=== PATIENT | male | born 1950 | race Caucasian/White ===

== ENCOUNTER 2023-03-18 23:14 | Emergency (ER) | payer MEDICARE, SELFPAY ==
[2023-03-18 23:30] VITALS: BP 184/93; PULSE 60; RESP 18; TEMP 36.8; O2SAT 97; BMI 28.1
--- NOTE | 2023-03-18 23:33 | ED.GENADULT ---
HPI - General Adult General Chief complaint: Abdominal Pain Stated complaint: abdominal pain lightheaded Time Seen by Provider: 03/18/23 23:33 History of Present Illness HPI narrative: RLQ pain started today. had a scan with PCP for abd but no results. states hx of appendectomy. normal BM today . does have nausea with it. hx colon ca, prostate ca, lymphoma 72-year-old man presenting to the emergency department concern of abdominal pain and lightheadedness. Attempting clarify whether this is dizziness or lightheadedness he says maybe a combination of both. Does not really seem to be present though at rest. Maintains that this is a new symptom as of today. No headache. No visual disturbance. Does endorse a history of about a year and a half ago combination a TIA and other CVA as described which briefly affected his right eye and speech but has fully resolved. He is only taking aspirin. Underlying history of colon cancer see initially denying any abdominal surgeries but later evident that has had partial colectomy for this. He also has prostate cancer for which he did have radiation as well as resection for lymphoma indicating his left neck right axilla and right side. He has now had 6-8 weeks of persistent cramping lower abdominal pain. Two weeks ago was seen by Natasha cornejo who ordered an abdominal CT scan which he says was unremarkable. Cancer doc in effort to clarify this thought that maybe should order a PET scan which was apparently done today with results unavailable. Mr. Covarrubias also has a history of cardiovascular disease noting a history of a stent many years ago. Never had a heart attack is says. He is status post appendectomy. Denies constipation or diarrhea. No fever. He is not having any chest pain or shortness of breath. Denies dysuria or frequency urgency. Denies trouble with urinary retention. I asked him what he would like from this visit a, ?I would just like you to figure out what is going on?. This is also after I ask what he thinks might be going on sounds the some question whether not he might have kidney stones. It does not sound as though this was noted on prior imaging. Has not noted any hematuria. Related Data Home Medications Medication Instructions Recorded Confirmed aspirin 81 mg capsule 81 mg PO DAILY 03/18/23 03/18/23 lisinopril .ROUTE 03/18/23 metoprolol tartrate .ROUTE 03/18/23 tamsulosin 0.4 mg capsule 0.4 mg PO DAILY 03/18/23 03/18/23 Previous Rx's Medication Instructions Recorded tramadol 50 mg tablet 50 - 100 mg (1 - 2 x 50 mg) PO BID 03/19/23 PRN pain #10 tabs tramadol 50 mg tablet 50 - 100 mg (1 - 2 x 50 mg) PO BID 03/19/23 PRN pain #10 tabs Allergies Allergy/AdvReac Type Severity Reaction Status Date / Time Penicillins AdvReac Verified 03/18/23 23:28 Review of Systems Status of ROS: Reports: 6 or more systems reviewed and unremarkable except as noted in History and below [facility] Medical History (Updated 03/19/23 @ 01:54 by Eduard Chawla MD) Colon cancer ?C18.9 - Malignant neoplasm of colon, unspecified (ICD-10) Prostate cancer ?C61 - Malignant neoplasm of prostate (ICD-10) Social History Smoking Status: Never smoker Do you use any of these nicotine containing products: None How often do you have a drink containing alcohol: never AUDIT-C Alcohol total score: 0 Non-prescribed substance use: denies use Exam Narrative: Exam Narrative: Pleasant. NAD. Frequently closing his eyes apparently against the light. Easily conversant. Breathing easily. Head is atraumatic. Cranial nerves 2-12 are intact. Pupils 2-3 mm equal and briskly reactive. There is no nystagmus. No facial swelling erythema or tenderness. TMs bilaterally did not appear to be inflamed or full; exam a little challenge by extensive cerumen in the canals. Reports this sense of (my interpretation) vague dizziness or lightheadedness in transitions. Moving all extremities without difficulty. Lower extremities are without edema. Is well-perfused. Heart in regular rhythm. Slower rate. Distant. Abdomen is soft normoactive bowel sounds. Relatively recent postoperative scars at the left abdomen consistent with trocar placement. Old well-healed scar at the right low inguinal area. Mildly tender with mild resistance to exam not to the degree of discomfort I would associate with true guarding, across the low abdomen. Generally full without discrete mass. Suprapubic area shaved - no recent procedures noted here. Const: Vital Signs, click to edit/add: Vital Signs - 24 hr 03/18/23 23:30 03/19/23 01:46 Temperature 98.2 F Pulse Rate [Pulse Oximeter] 60 Pulse Rate [orthos tatic lying] 62 Pulse Rate [orthos tatic sitting] 64 Pulse Rate [orthos tatic standing] 63 Respiratory Rate 18 Blood Pressure [Ri ght Upper Arm] 184/93 H Blood Pressure [or thostatic lying] 182/94 H Blood Pressure [or thostatic sitting] 179/104 H Blood Pressure [or thostatic standing ] 200/107 H Pulse Oximetry 97 Oxygen Delivery Me thod Room Air Documenting provider has reviewed patient's vital signs: yes Course Vital Signs Vital signs: Initial Vital Signs Temperature 98.2 F 03/18/23 23:30 Temperature Source Temporal Artery Scan 03/18/23 23:30 Pulse Rate 60 03/18/23 23:30 Respiratory Rate 18 03/18/23 23:30 Blood Pressure 184/93 H 03/18/23 23:30 Blood Pressure Mean 123 H 03/18/23 23:30 Blood Pressure Position Sitting 03/18/23 23:30 Pulse Oximetry 97 03/18/23 23:30 Oxygen Delivery Method Room Air 03/18/23 23:30 Vital Signs Temperature 98.2 F 03/18/23 23:30 Pulse Rate 60 03/18/23 23:30 Respiratory Rate 18 03/18/23 23:30 Blood Pressure 184/93 H 03/18/23 23:30 Pulse Oximetry 97 03/18/23 23:30 Oxygen Delivery Method Room Air 03/18/23 23:30 Temperature 98.2 F 03/18/23 23:30 Pulse Rate 62 03/19/23 01:46 Respiratory Rate 18 03/18/23 23:30 Blood Pressure 182/94 H 03/19/23 01:46 Pulse Oximetry 97 03/18/23 23:30 Oxygen Delivery Method Room Air 03/18/23 23:30 Medications Administered Medications: Discontinued Medications Generic Name Dose Route Start Last Admin Trade Name Freq PRN Reason Stop Dose Admin Sodium Chloride 1,000 mls @ 1,000 mls/hr 03/18/23 23:57 03/19/23 01:24 0.9 % Sodium Chloride 1000 Ml IV 03/19/23 00:56 Infused .Q1H ONE Infusion Tramadol HCl 100 mg 03/19/23 01:17 03/19/23 01:23 Tramadol Hcl 50 Mg Tablet PO 03/19/23 01:18 100 mg ONCE ONE Administration Medical Decision Making MDM Narrative Medical decision making narrative: This is difficult with persistent symptoms already evaluated, seems to be continuation of what has been present prior. New symptom is this sense of dizziness or lightheadedness without physical findings otherwise. Would do orthostatics. He does take a beta-tristan. Tamsulosin as well. Either medication I suppose could be contributing to the sense of lightheadedness although per on arrival is clearly not hypotensive. Lightheadedness could be related to lower abdominal pain. This abdominal pain has been imaged without findings though discomfort seems to be escalating. 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 Reviewing prior imaging from 01/17/2023, it looks like this mass was in the central mesentery. Look for objective findings in orthostatics. Check labs. Evaluate for cardiac event. Monitor for dysrhythmia/arrhythmia. I would do bladder scan as well with history of prostatic issues. Urinalysis. Ordered for L of normal saline IV. Orthostatics I see completed following L of fluids, were reported by nursing as asymptomatic. Systolic blood pressure raised by about 16 points. Unchanged pulse. On reassessment is reported feeling improved. He does say that he has some version of abdominal or back binder that he uses at home that has been helpful. Wondered if we had anything like that here. I had requested abdominal binder. Reexamining he is somewhat tender in the right greater than left inguinal areas. This is not consistent with the hip flexors. Somewhat related to testicular cord/epididymal tissues, do not testing from pelvic wall. No pain or swelling apparent in testicles themselves. Urinalysis was normal. Bladder scanned for 86 mL having voided couple hours prior. 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 Transitioning without difficulty. Labs are reassuring. Further questioning -- apparently has received oxycodone prescription from primary care provider. Reports that he was out as of yesterday. Believes he received 20 tabs. Elevated blood pressure generally but otherwise does not appear to have any emergent matter here. Says that he has taken his blood pressure medication regularly. Agrees that he feels better, improved, well to depart the emergency department. No imaging was done given that has had regular and repeat imaging for same complaints. Agrees to follow-up closely with primary care. See patient discharge plan Medical Records Medical records reviewed: Yes I reviewed the patient's medical records Lab Data Lab results reviewed: Yes I reviewed the patient's lab results Labs: Lab Results 03/19/23 03/19/23 03/19/23 Range/Units 00:10 00:15 00:40 WBC 7.81 (4.50-11.00) K/uL RBC 4.37 (4.30-5.90) m/uL Hgb 13.8 (13.5-17.5) gm/dL Hct 38.6 (37.0-53.0) % MCV 88 (80-100) fL MCH 32 (26-34) pg MCHC 36 (32-36) gm/dL RDW Coeff of Andrez 12.1 (11.5-15.5) % Plt Count 163 (140-440) K/uL Neut % (Auto) 79.1 H (42.0-72.0) % Lymph % (Auto) 10.6 L (20-44) % [place] % (Auto) 6.8 (0.0-11.0) % Eos % (Auto) 2.3 (0.0-7.0) % Baso % (Auto) 0.3 (0.0-3.0) % Neut # (Auto) 6.20 (1.7-7.0) K/uL Lymph # (Auto) 0.80 L (0.90-2.90) K/uL [place] # (Auto) 0.50 (0.00-0.90) K/UL Eos # (Auto) 0.18 (0.00-0.50) K/uL Baso # (Auto) 0.02 (0.00-0.30) K/uL Abs Immat Gran (auto) 0.07 (0.00-0.30) K/uL Imm/Tot Granulo (auto) 0.9 % Sodium 137 (135-149) mmol/L Potassium 3.6 (3.6-5.1) mmol/L Chloride 105 (96-114) mmol/L Carbon Dioxide 28 (20-32) mmol/L Anion Gap 4 L (7-15) mEq/L BUN 17 (7-30) mg/dL Creatinine 1.1 (0.5-1.5) mg/dL Estimated Creat Clear 61.59 Estimated GFR 72 ml/min Glucose 119 H (60-115) mg/dL Lactate 0.9 (0.5-1.9) mmol/L Calcium 9.1 (8.4-10.6) mg/dL Magnesium 1.9 (1.5-2.6) mg/dL Troponin I 0.01 (0.01-0.04) ng/mL C-Reactive Protein 0.5 (0.5-1.0) mg/dL NT-Pro-B Natriuret Pep 368 pg/mL Urine Color Yellow (Yellow) Urine Appearance Clear (Clear) Urine pH 7.5 (5.0-8.5) Ur Specific [place] 1.020 (1.000-1.030) Urine Protein Negative (Negative) Urine Glucose (UA) Negative (Negative) Urine Ketones Negative (Negative) Urine Blood Negative (Negative) Urine Nitrite Negative (Negative) Urine Bilirubin Negative (Negative) Urine Urobilinogen 0.2 (0.2-1.0) Ur Leukocyte Esterase Negative (Negative) Urine RBC 0-2 (0-2) Urine WBC 0-2 (0-5) Ur Squamous Epith Cells Few (None-Few) Urine Bacteria None (None) Ethyl Alcohol < 0.01 L (0.01-0.03) % SARS-CoV-2 (PCR) Negative SARS-CoV-2 (Negative) Influenza Type A (PCR) Negative PCR FLU A (Negative) Influenza Type B (PCR) Negative PCR FLU B (Negative) RSV (PCR) Negative PCR RSV (Negative) POC Troponin I 0.00 L (0.01-0.04) ng/ml ECG Data Attestation: I personally reviewed and interpreted this ECG as follows: (Sinus bradycardia. Right bundle. rate of 50. No prior for comparison. Otherwise without ischemic changes.) Discharge Plan Discharge Clinical Impression: Low back pain, Lower abdominal pain Patient Disposition: Home w/ Parent or Adult Condition: Improved Additional Instructions: Yes. I think I would follow-up with your primary care provider; call yet later today if possible. Your labs are overall reassuring. Your blood pressure is little bit elevated. I would check this after a period of rest every other day over this coming week. Return for marked increase in lightheadedness, severe abdominal pain, chest pain or shortness of breath. Prescriptions: New tramadol 50 mg tablet 50 - 100 mg PO BID PRN (Reason: pain) Qty: 10 0RF tramadol 50 mg tablet 50 - 100 mg PO BID PRN (Reason: pain) Qty: 10 0RF No Action metoprolol tartrate .ROUTE lisinopril .ROUTE aspirin 81 mg capsule 81 mg PO DAILY tamsulosin 0.4 mg capsule 0.4 mg PO DAILY Follow Up/Referrals: Vamshi Hewitt MD [Primary Care Provider] - Stand Alone Forms: [facility] Info Instructions
--- OUTSIDE RECORDS SUMMARY | 2023-03-19 00:04 | XMS_ITS | Referral Summary ---
Author Name Unknown Organization [place] Address [address] [place] [address]. [place] [address] Care Team Providers Care Serologist Name Role Phone Vamshi Hewitt MD Primary Care Provider + [phone] Silvia Montiel MD Unavailable [phone] Allergies Active Allergy Reactions Criticality Noted Date Comments Penicillins 07/29/2012 Medications Medication Sig Dispensed Refills Start Date End Date Status metoprolol succinate ER (TOPROL-XL) 100 MG 24 hr tablet Take 100 mg by mouth daily 0 Active lisinopril-hydroc hlorothiazide (ZESTORETIC) 20-12.5 MG tablet Take 1 tablet by mouth daily 0 Active acyclovir (ZOVIRAX) 400 MG tablet Take 2,000 mg by mouth as needed (onset of symptoms and repeat in 12 hours. 5 x 400 mg = 2000 mg) 0 Active aspirin 81 MG EC tablet Take 81 mg by mouth daily 0 Active Polyvinyl Alcohol-Povidone (REFRESH OP) Place 1 drop into both eyes as needed (for dry eyes) 0 Active oxyCODONE (ROXICODONE) 5 MG tabletIndications :Polyp of ascending colon, unspecified type Take 1-2 tablets (5-10 mg) by mouth every 6 hours as needed for moderate to severe pain 12 tablet 0 07/22/2021 Active oxybutynin ER (DITROPAN XL) 5 MG 24 hr tabletIndications :Overactive bladder Take 1 tablet (5 mg) by mouth daily 90 tablet 1 02/20/2022 Active indomethacin (INDOCIN) 50 MG capsule Take 50 mg by mouth 2 times daily as needed (gout) 0 07/22/2021 Discontinued Active Problems Problem Noted Date Diagnosed Date Pulmonary nodules 07/20/2021 Gastrointestinal hemorrhage, unspecified gastrointestinal hemorrhage type 07/20/2021 Anemia, unspecified type 07/20/2021 Colon polyp 07/18/2021 Prostate cancer 05/11/2021 Diverticulitis of colon 01/28/2020 Acute ischemic stroke 01/02/2020 Cerebrovascular accident (CVA), unspecified mech anism 01/02/2020 Immunizations Name Administration Dates Next Due Influenza (H1N1) 12/18/2008 Influenza (High Dose) 3 valent vaccine 9 Influenza (IIV3) PF 12/24/2013,02/22/2011 Influenza (intradermal) 11/01/2011 Influenza Vaccine 65+ (FLUAD) 11/24/2019 Influenza, seasonal, injectable, PF 11/12/2008 Pneumo Conj 13-V (2010&after) 12/24/2019 TDAP (Adacel,Boostrix) 11/13/2011 Zoster vaccine, live 12/24/2013,11/01/2011 Social History Tobacco Use Types Packs/Day Years Used Date Smoking Tobacco: Never Passive Smoke Exposure: Never Smokeless Tobacco: Never Tobacco Cessation:Counseling Given: Yes Alcohol Use Standard Drinks/Week Comments No 0 (1 standard drink = 0.6 oz pur e alcohol) Overall Financial Resource Strain (CARDIA) Answe r Date Recorded How hard is it for you to pa y for the very basics like food, housing, medical care, and heating? Not very hard 02/05/2020 PHQ-2 Answer Date Recorded PHQ-2 Score 0 03/22/2021 Hunger Vital Sign Answer Date Recorded Within the past 12 months, y ou worried that your food would run out before you got the money to buy more. Never true 02/05/20 20 Within the past 12 months, t he food you bought just didn't last and you didn't have money to get more. Never true 02/05/2020 PRAPARE - Transportation Answer Date Re corded In the past 12 months, has l ack of transportation kept you from medical appointments or from getting medications? No 01/18 In the past 12 months, has l ack of transportation kept you from meetings, work, or from getting things needed for daily living? No 02/05/2020 Adolescent Education Answer Date Record ed Getting School Help Needed Not on file 12/02 Sex and Gender Information Value Date Recorded Sex Assigned at Not on file Gender Identity Not on file Sexual Orientation Not on file Last Filed Vital Signs Vital Sign Reading Time Taken Comments Blood Pressure 110/78 10/26/2022 10:16 AM CDT Pulse 59 10/26/2022 10:16 AM CDT Temperature 36.6 ??C (97.8 ??F) 07/22/2021 7:35 AM CD T Respiratory Rate 15 10/26/2022 10:16 AM CDT Oxygen Saturation 98% 10/26/2022 10:16 AM CDT Inhaled Oxygen Concentration - - Weight 81.6 kg (180 lb) 10/26/2022 10:16 AM CDT Height 175.3 cm (5' 9) 10/26/2022 10:16 AM CDT Body Mass Index 26.58 10/26/2022 10:16 AM CDT Plan of Treatment Not on file Advance Directives For more information, please contact: [phone] Latest Code Status on File Code Status Date Activated Date Inactivated Comments Full Code 07/22/2021 2:44 PM Question Answer Comments Code status determined by: Discussion wi patient/ legal decision maker Code Status History Code Status Date Activated Date Inactivated Comments Full Code 07/20/2021 11:06 PM 07/22/2021 2:44 PM All ba sic and advanced life-sustaining interventions are performed as appropriate Question Answer Comments Code status determined by: Discussion with patient/ legal decision maker Full Code 07/18/2021 7:29 PM 07/19/2021 7:45 PM All ba sic and advanced life-sustaining interventions are performed as appropriate Question Answer Comments Code status determined by: Discussion with patient/ legal decision maker Full Code 01/28/2020 1:12 PM 07/18/2021 9:57 AM Question Answer Comments Code status determined by: Discussion with patient/ legal decision maker Full Code 01/28/2020 3:53 AM 01/28/2020 1:12 PM All basic and advanced life-sustaining interventions are performed as appropriate Question Answer Comments Code status determined by: Discussion with patient/ legal decision maker Care Teams Serologist Relationship Specialty [place] [address] [place] [phone] PCP - General Family Practice 07/29/12 Silvia Montiel MD [facility] [address] [facility] [address] [place], [place] [id number] Assigned Surgical Provider 11/03/22
--- OUTSIDE RECORDS SUMMARY | 2023-03-19 00:04 | XMS_ITS | Encounter Summary ---
Author Name Unknown Organization [place] Address [facility] [facility] [place] [address] Care Team Providers Care Music Executive Name Role Phone Vamshi Hewitt MD Primary Care Provider + [phone] Matteo Del Angel MD Unavailable [phone] Encounter Details Date Type Department Care Team (Latest Contact Info) Description 10/26/2022 Travel Social History Tobacco Use Types Packs/Day Years Used Date Smoking Tobacco: Never Passive Smoke Exposure: Never Smokeless Tobacco: Never Alcohol Use Standard Drinks/Week Comments No 0 [...] things needed for daily living? No 02/05/2020 Sex and Gender Information Value Date Recorded Sex Assigned at Not on file Gender Identity Not on file Sexual Orientation Not on file COVID-19 Exposure Response Date Recorded In the last 10 days, have yo u been in contact with someone who was confirmed or suspected to have Coronavirus/COVID-19? Unable to assess 10/26/2022 11:18 AM CDT documented as of this encounter Plan of Treatment Not on file documented as of this encounter Visit Diagnoses Not on filedocumented in this encounter Care Teams Music Executive Relationship Specialty [place] [address] [place] [phone] PCP - General Family Practice 07/29/12 Matteo Del Angel MD [address] [place] [id number] Assigned Surgical Provider 02/26/21 documented as of this encounter
--- OUTSIDE RECORDS SUMMARY | 2023-03-19 00:04 | XMS_ITS | Clinical Summary ---
Author Name Unknown Organization [place] Address [address] [place] [address]. [place] [address] Care Team Providers Care Talent Acquisition Assistant Name Role Phone Vamshi Hewitt MD Primary Care Provider + [phone] Silvia Montiel MD Unavailable Allergies Active Allergy Reactions Criticality Noted Date [...] TDAP (Adacel,Boostrix) 11/13/2011 Zoster vaccine, live 12/24/2013,11/01/2011 Family History Medical History Relation Comments Colon Cancer No family hx of Social History Tobacco Use Types Packs/Day Years [...] 10/26/2022 10:16 AM CDT Plan of Treatment Health Maintenance Due Date Last Done Comments ADVANCE CARE PLANNING 1950 ANNUAL REVIEW OF HM ORDERS 1950 CT COLONOGRAPHY 1950 FIT 1950 FLEX SIG 1950 sDNA (Cologuard) 1950 HEPATITIS C SCREENING 11/16/1969 RSV VACCINE ( & 60+) (1 - 1-dose 60+ series) 2011 ZOSTER IMMUNIZATION (1 of 2) 02/18/2014 12/24/2013, 11/01/2011 MEDICARE ANNUAL WELLNESS VISIT 11/16/2016 FALL RISK ASSESSMENT 02/04/2021 02/05/2020 DTAP/TDAP/TD IMMUNIZATION (2 - Td or Tdap) 11/12/2021 11/13/2011 COLONOSCOPY 07/21/2022 07/21/2021, 07/21/2021 COLORECTAL CANCER SCREENING 07/21/2022 COVID-19 Vaccine ( - season) 2022 12/01/2021, 03/30/2020, 03/02/2020 INFLUENZA VACCINE (#1) 2022 , 11/24/2019, 02/04/2019, Additional history exists PHQ-2 (once per calendar year) 2023 03/22/2021, 03/09/2021 LIPID 01/01/2025 01/02/2020, 11/11/2004 AORTIC ANEURYSM SCREENING (SYSTEM ASSIGNED) Completed 07/20/2021, 03/20/2021, 01/28/2020 Pneumococcal Vaccine: 65+ Years Completed 12/01/2021, 12/24/2019 HPV IMMUNIZATION Aged Out No longer e ligible based on patient's age to complete this topic IPV IMMUNIZATION Aged Out No longer e ligible based on patient's age to complete this topic MENINGITIS IMMUNIZATION Aged Out No l onger eligible based on patient's age to complete this topic RSV MONOCLONAL ANTIBODY Aged Out No l onger eligible based on patient's age to complete this topic Advance Directives For more information, please contact: [phone] Latest Code Status on File Code Status [...] with patient/ legal decision maker Care Teams Talent Acquisition Assistant Relationship Specialty Start [place] [address] [place] [phone] PCP - General Family Practice 07/29/12 Silvia Montiel MD [facility] [address] [facility] [address] [place] [address] Assigned Surgical Provider 11/03/22
--- OUTSIDE RECORDS SUMMARY | 2023-03-19 00:04 | XMS_ITS | Clinical Summary ---
Author Name Unknown Organization [facility] Address [place], [place] [address] Care Team Providers Care Pet Care Associate Name Role Phone Vamshi Hewitt MD Primary Care Provider Allergies Active Allergy Reactions Criticality Noted Date Comments Penicillins *Unknown 05/28/2012 Medications Medication Sig Dispensed Refills Start Date End Date Status sildenafil citrate (VIAGRA) 100 mg tabletIndications:E D (erectile dysfunction) of non-organic origin Take 1 pill 1 hour before intercourse 90 Tablet 3 07/28/2020 Active aspirin (ECOTRIN) 81 mg enteric coated tablet Take 1 Tablet (81 mg) by mouth once daily with a meal. 0 05/08/2021 Active lisinopril-hydrochl orothiazide 20-12.5 mg tablet (PRINZIDE)Indicatio ns:Essential hypertension Take 1 Tablet by mouth once daily. 90 Tablet 3 02/05/2022 Active indomethacin (INDOCIN) 50 mg capsuleIndications: Gout, unspecified cause, unspecified chronicity, unspecified site Take 1 tablet by mouth 3 times daily with food as needed 270 Capsule 0 06/04/2022 Active acyclovir (ZOVIRAX) 400 mg tabletIndications:H istory of cold sores Take 5 tablets at the onset of symptoms and repeat it in 12 hours 50 Tablet 3 11/08/2022 Active tamsulosin (FLOMAX) 0.4 mg capsuleIndications: History of cold sores Take 2 Capsules (0.8 mg) by mouth once daily after a meal. 180 Capsule 3 11/08/2022 Active metoprolol succinate (TOPROL XL) 100 mg Sustained-Release tabletIndications:H TN (hypertension) Take 1 Tablet (100 mg) by mouth once daily. 90 Tablet 3 12/10/2022 Active oxyCODONE (ROXICODONE) 5 mg immediate release tabletIndications:N yifan pain, chronic,Chronic nonintractable headache, unspecified headache type Take 1 Tablet (5 mg) by mouth every 4 hours if needed for Pain. 42 Tablet 0 03/07/2023 Active allopurinoL (ZYLOPRIM) 300 mg tabletIndications:G out involving toe of left foot, unspecified cause, unspecified chronicity Take 1 Tablet (300 mg) by mouth once daily. 90 Tablet 3 08/23/2022 03/07/19 24 Discontinu ed(*Med complete/R egimen complete/L evel of care change) oxyCODONE (ROXICODONE) 5 mg immediate release tabletIndications:N yifan pain, chronic,Chronic nonintractable headache, unspecified headache type Take 1 Tablet (5 mg) by mouth every 4 hours if needed for Pain. 42 Tablet 0 01/16/2023 03/07/19 24 Discontinu ed(Reorder (E-cancel not sent)) Active Problems Problem Noted Date Diagnosed Date Left upper quadrant abdominal pain 03/08/2023 Follicular lymphoma grade II , extranodal and solid organ sites 11/09/2022 Thyroid nodule 11/09/2022 Unspecified sequelae of cerebral infarction 10/20 Multinodular thyroid 08/14/2021 Overview: Ultrasound: 07/2021 IMPRESSION: 1. Multinodular goiter with several bilateral TI-RADS 2 nodules. No FNA recommended at this time. Anemia 07/20/2021 Gastrointestinal hemorrhage 07/20/2021 Pulmonary nodules 07/20/2021 Prostate cancer 07/14/2021 Overview: Diagnosis 02/2021 Burt 7 radiation Primary colon cancer 07/14/2021 Overview: Diagnosis 06/2021 On screening colonoscopy Right hemicolectomy 06/2021 RBBB 07/14/2021 Obstructive uropathy 07/14/2021 Overview: Likely prostate - up 4-5 a night History of cold sores 2020 Essential hypertension 07/26/2020 Hyperlipidemia, unspecified 07/26/2020 Diverticulitis of colon 01/28/2020 Mass of left parotid gland Encounters Date Type Department Care Team Description 03/07/2023 2:20 PM PORTABLE FEED MILL OPERATOR Office Visit [facility] [address] [place] [address] Vamshi Hewitt MD Medication Management 03/07/2023 Travel 02/21/2023 3:30 PM PORTABLE FEED MILL OPERATOR Ancillary Procedure [facility] [address] [place] [address] 02/21/2023 3:20 PM PORTABLE FEED MILL OPERATOR Orders Only [facility] [id number] [place] [phone] Lab, Appv Lab 02/21/2023 Travel 02/20/2023 Telephone [facility] [address] [place] [address] Vamshi Hewitt MD Lab (Please schedule patient for a lab only appointment for I-STAT Creatinine [address] scan. This appointment is OK to double book on the [facility] Schedule ONLY. Call patient to notify them.) 02/20/2023 Orders Only [facility] [address] [place] [address] Vamshi Hewitt MD <No scans attached> 02/20/2023 Telephone [facility] [address] [place] [address] Vamshi Hewitt MD 01/17/2023 5:30 PM PORTABLE FEED MILL OPERATOR Ancillary Procedure [facility] [address] [place] [address] 01/17/2023 4:50 PM PORTABLE FEED MILL OPERATOR Orders Only [facility] [address] [place] [address] Lab, Appv Lab 01/17/2023 Telephone [facility] [address] [place] [phone] Vamshi Hewitt MD Lab (Please schedule patient for a lab only appointment for I-STAT Creatinine [address] scan. This appointment is OK to double book on the [facility] Schedule ONLY. Call patient to notify them.) 01/17/2023 Orders Only [facility] [id number] [place] [phone] Vamshi Hewitt MD <No scans attached> 01/16/2023 10:10 AM PORTABLE FEED MILL OPERATOR Office Visit [facility] [id number] [place] [phone] Vamshi Hewitt MD Medication Management; Consult (Dull stomach pain in all 4 quads , pain becomes worse at night, 2-3 weeks, denies any diarrhea or emesis.); Immunization/Inject ion 01/16/2023 Travel from Last 3 Months Immunizations Name Administration Dates Next Due AMB INFLUENZA IIV3 (AGE 65+ YRS) PF (Flu Clinic Only) 12/19/2022 COVID-19 Vaccine Spikevax (M oderna 50mcg/0.5mL) 12YO+ [id number] Formula PF 01/16/2023 COVID-19 vaccine (Moderna 100mcg/0.5mL) PF, MDV 03/30/2020,03/02/2020 COVID-19 vaccine (Pfizer-Bio NTech 30mcg/0.3mL) 12YO+ BIVALENT PF, MDV 12/01/2021 Influenza A (H1N1), Inactivated 12/18/2008 Influenza Intradermal PF 18-64 yrs 11/01/2011 Influenza, High-dose Inactivated 02/04/2019 Influenza, IIV3 (Age 6-35 mos) 11/12/2008 Influenza, IIV3 (Age >=3 years) 12/24/2013,02/22 Influenza, Inactivated AIIV4 (Age 65+ Years) Preserv Free 12/01/2021,11/24/2019 Pneumococcal Poly,23-Valent (Pneumovax) 12/02/19 22 Pneumococcal conj 13-Valent (Prevnar 13) 020 Tdap 11/13/2011 Zoster (Zostavax-ZVL, live) 12/24/2013, 2 Family History Medical History Relation Name Comments Coronary artery disease Father myoc ardial infarction, quadruple bypass Cancer-breast Mother Relation Name Status Comments Father Mother Social History Tobacco Use Types Packs/Day Years Used Date Smoking Tobacco: Never Smokeless Tobacco: Never Tobacco Cessation:Counseling Given: Not Answered Alcohol Use Standard Drinks/Week Comments Not Currently 0 (1 standard drink = 0.6 oz pur e alcohol) PHQ-2 Answer Date Recorded PHQ-2 TOTAL SCORE 0 11/08/2022 Social Connections Answer Date Recorded Frequency of Communication with Friends and Fami ly 0 09/25/2022 Financial Resource Strain Answer Date R ecorded Difficulty of Paying Living Expenses 3 09/25/2022 Difficulty of Paying Living Expenses Not on file 09/25/2022 Food Insecurity Answer Date Recorded Worried About Running Out of Food in the Last Ye ar 1 09/25/2022 Transportation Needs Answer Date Record ed Lack of Transportation (Medical) 1 09/25/2022 Housing Stability Answer Date Recorded Unable to Pay for Housing in the Last Year 1 09/25/2022 Sex and Gender Information Value Date Recorded Sex Assigned at Not on file Gender Identity Not on file Sexual Orientation Not on file Obstetrics History Last Filed Vital Signs Vital Sign Reading Time Taken Comments Blood Pressure 128/78 03/07/2023 2:22 PM PORTABLE FEED MILL OPERATOR Pulse 72 03/07/2023 2:22 PM PORTABLE FEED MILL OPERATOR Temperature 36.6 ??C (97.9 ??F) 06/18/2022 1:05 PM CD T Respiratory Rate 20 06/18/2022 1:05 PM CDT Oxygen Saturation 97% 06/18/2022 1:05 PM CDT Inhaled Oxygen Concentration - - Weight 86.6 kg (191 lb) 03/07/2023 2:22 PM PORTABLE FEED MILL OPERATOR Height 174.6 cm (5' 8.75) 01/16/2023 10:[address] Body Mass Index 28.41 01/16/2023 10:53 AM PORTABLE FEED MILL OPERATOR Plan of Treatment Upcoming Encounters Date Type Department Care Team (Late st Contact Info) Description 04/08/2023 2:40 PM PORTABLE FEED MILL OPERATOR Office Visit [facility] [address] [place] [phone] [place] [address] [place] [address] Health Maintenance Due Date Last Done Comments Hepatitis C screening for ag e 18-79 11/16/1968 Zoster (shingles) series for age 50+ (1 of 2) 02/18/2014 12/24/2013, 11/01/2011 Tetanus booster 11/12/2021 11/13/2011 COVID-19 vaccine series ( season) 2023 01/16/2023, 12/01/2021, 03/30/2020, Additional history exists Medicare Wellness for age 65+ 11/08/2023, 12/01/2021 (Verified in Care Everywhere or Patient Record) Depression screening for age 12+ 11/09/2023 11/08/2022, 12/01/2021, 10/02/2021, Additional history exists BMI (ht and wt on same day) for age 18+ 01/17/2024 01/16/2023, 12/10/2022, 11/08/2022, Additional history exists Lipids for age 45-75 07/14/2026 07/14/2021 Colonoscopy through age 75 07/19/203107/18 (Verified in Care Everywhere or Patient Record), 07/18/2021 (Completed outside of [facility]) Tdap Completed 11/13/2011 Pneumococcal series for age 65+ Completed , 12/24/2019 Influenza for age 65+ Completed 12/19/2022 , 12/01/2021, 11/24/2019, Additional history exists Procedures Procedure Name Priority Date/Time Associated Diagnosis Comments CT CHEST ABDOMEN PELVIS W ELIA 02/21/2023 4:00 PM PORTABLE FEED MILL OPERATOR Follicular lymphoma (HC) CREATININE,ISTAT STAT 02/21/2023 3:30 PM PORTABLE FEED MILL OPERATOR Observation for suspected condition CT ABDOMEN PELVIS WO ELIA 01/17/2023 5:46 PM PORTABLE FEED MILL OPERATOR Abdominal pain, generalized CREATININE,ISTAT STAT 01/17/2023 5:09 PM PORTABLE FEED MILL OPERATOR Observation for suspected condition from Last 3 Months Results * CT CHEST ABDOMEN PELVIS W (02/21/2023 4:00 PM PORTABLE FEED MILL OPERATOR) Anatomical Region Laterality Modality Abdomen, Pelvis, AORTA, LIVER, SPLEEN, CHEST Computed Tomography 02/21/2023 4:00 PM PORTABLE FEED MILL OPERATOR Impressions 02/21/2023 4:27 PM PORTABLE FEED MILL OPERATOR 1. ??Stable mesenteric mass. No new adenopathy. 2. ??No evidence to suggest progression of disease. 3. ??Scattered pulmonary micronodules measuring up to 5 mm. Continued attention on follow-up. 4. ??Enlarged multinodular thyroid has been previously evaluated and undergone FNA. See dedicated outside thyroid imaging for further information. Narrative 02/21/2023 4:27 PM PORTABLE FEED MILL OPERATOR For Patients: As a result of the Century Cures Act, medical imaging exams and procedure reports are released immediately into your electronic medical record. You may view this report before your referring provider. If you have questions, please contact your health care provider. EXAM: CT CHEST ABDOMEN PELVIS W LOCATION: [facility] DATE: 02/21/2023 INDICATION: Follicular Lymphoma (hc) COMPARISON: CT abdomen and pelvis from 01/17/2023 TECHNIQUE: CT scan of the chest, abdomen, and pelvis was performed following injection of IV contrast. Multiplanar reformats were obtained. Dose reduction techniques were used. CONTRAST: Omnipaque 350 100ml FINDINGS: LUNGS AND PLEURA: Mild emphysema. Mild scattered bibasilar atelectasis and scarring. No effusions. There are a few small pulmonary micronodules. The largest is in the right lower lobe measuring 5 mm on series 5 image 155. MEDIASTINUM/AXILLAE: Heart size is normal. No adenopathy. Normal caliber aorta. Enlarged multinodular thyroid. The largest nodule is in the left inferior thyroid gland measuring 3.3 cm and extends into the thoracic inlet. CORONARY ARTERY CALCIFICATION: Moderate. HEPATOBILIARY: Cholecystectomy. PANCREAS: Normal. SPLEEN: Normal size. ADRENAL GLANDS: Normal. KIDNEYS/BLADDER: No significant mass, stones, or hydronephrosis. There are simple or benign cysts. No follow up is needed. The bladder is incompletely distended accentuating wall thickening. BOWEL: Diverticulosis of the colon. No acute inflammatory change. No obstruction. Right hemicolectomy. LYMPH NODES: Again seen is the soft tissue mass in the small bowel mesentery encasing the mesenteric vessels on series 2 image 193. This is relatively similar in size when compared to prior exam when allowing for differences in technique measuring 3.3 x 2.7 cm. No new adenopathy. VASCULATURE: Unremarkable. PELVIC ORGANS: Mild prostatomegaly MUSCULOSKELETAL: Heterogeneous osteopenia. No definitive osseous lesions Procedure Note Sam Pereira MD - 02/21/2023 For Patients: As a result of the Cures Act, medical imagingexams and procedure reports are released immediately into your electronicmedical record. You may view this report before your referring provider.If you have questions, please contact your health care provider. EXAM: CT CHEST ABDOMEN PELVIS W LOCATION: [facility] DATE: 02/21/2023 INDICATION: Follicular Lymphoma (hc) COMPARISON: CT abdomen and pelvis from 01/17/2023 TECHNIQUE: CT scan of the chest, abdomen, and pelvis was performedfollowing injection of IV contrast. Multiplanar reformats were obtained.Dose reduction techniques were used. CONTRAST: Omnipaque 350 100ml FINDINGS: LUNGS AND PLEURA: Mild emphysema. Mild scattered bibasilar atelectasis andscarring. No effusions. There are a few small pulmonary micronodules. Thelargest is in the right lower lobe measuring 5 mm on series 5 image 155. MEDIASTINUM/AXILLAE: Heart size is normal. No adenopathy. Normal caliberaorta. Enlarged multinodular thyroid. The largest nodule is in the leftinferior thyroid gland measuring 3.3 cm and extends into the thoracicinlet. CORONARY ARTERY CALCIFICATION: Moderate. HEPATOBILIARY: Cholecystectomy. PANCREAS: Normal. SPLEEN: Normal size. ADRENAL GLANDS: Normal. KIDNEYS/BLADDER: No significant mass, stones, or hydronephrosis. There aresimple or benign cysts. No follow up is needed. The bladder isincompletely distended accentuating wall thickening. BOWEL: Diverticulosis of the colon. No acute inflammatory change. Noobstruction. Right hemicolectomy. LYMPH NODES: Again seen is the soft tissue mass in the small bowelmesentery encasing the mesenteric vessels on series 2 image 193. This isrelatively similar in size when compared to prior exam when allowing fordifferences in technique measuring 3.3 x 2.7 cm. No new adenopathy. VASCULATURE: Unremarkable. PELVIC ORGANS: Mild prostatomegaly MUSCULOSKELETAL: Heterogeneous osteopenia. No definitive osseous lesions IMPRESSION: 1. Stable mesenteric mass. No new adenopathy. 2. No evidence to suggest progression of disease. 3. Scattered pulmonary micronodules measuring up to 5 mm. Continuedattention on follow-up. 4. Enlarged multinodular thyroid has been previously evaluated andundergone FNA. See dedicated outside thyroid imaging for furtherinformation. Sheron Hughes NP CT * (ABNORMAL) CREATININE,ISTAT (02/21/2023 3:30 PM PORTABLE FEED MILL OPERATOR) Only the most recent of2 resultswithin the time period is included. CREATININE, POCT 1.40(H) 0.57 - 1.11 mg/dL 02/21/2023 3:32 PM PORTABLE FEED MILL OPERATOR [facility] Comment:Caution: Patients ta génesis Hydroxyurea have falsely increased iStat Creatinine results. Verify creatinine results ordering a Creatinine (27729.2) eGFR 54(L) >90 mL/min/1.7 3m2 02/21/2023 3:32 PM PORTABLE FEED MILL OPERATOR [facility] Comment:As of 2021, eG FR is calculated by the CKD-EPI creatinine equation without race adjustment. eGFR can be influenced by muscle mass, exercise, and diet. The reported eGFR is an estimation only and is only applicable if the renal function is stable. Blood BLOOD SPECIMEN / Unknown 02/21/2023 3:30 PM PORTABLE FEED MILL OPERATOR 02/21/2023 3:32 PM PORTABLE FEED MILL OPERATOR Vamshi Hewitt MD CHEMISTRY [facility] [address] [place] [address], [place] * CT ABDOMEN PELVIS WO (01/17/2023 5:46 PM PORTABLE FEED MILL OPERATOR) Anatomical Region Laterality Modality Abdomen, Pelvis, AORTA, LIVER, SPLEEN Computed Tomography 01/17/2023 5:46 PM PORTABLE FEED MILL OPERATOR Impressions 01/17/2023 9:32 PM PORTABLE FEED MILL OPERATOR No acute findings in the abdomen or pelvis. Narrative 01/17/2023 9:32 PM PORTABLE FEED MILL OPERATOR For Patients: As a result of the Century Cures Act, medical imaging exams and procedure reports are released immediately into your electronic medical record. You may view this report before your referring provider. If you have questions, please contact your health care provider. EXAM: CT ABDOMEN PELVIS WO LOCATION: [facility] DATE: 01/17/2023 INDICATION: Abdominal Pain, Generalized. He had surgery for colon cancer about 1.5 years ago and has had diffuse abdominal pain for 4 weeks. COMPARISON: PET/CT 09/12/2022, CT chest abdomen pelvis 04/24/2022 reviewed. TECHNIQUE: CT scan of the abdomen and pelvis was performed without IV contrast. Multiplanar reformats were obtained. Dose reduction techniques were used. CONTRAST: None. FINDINGS: LOWER CHEST: Mild bandlike scarring or atelectasis in the lower lungs. Coronary artery calcification. HEPATOBILIARY: Cholecystectomy. Normal noncontrast liver. PANCREAS: Normal. SPLEEN: Normal. ADRENAL GLANDS: Normal. KIDNEYS/BLADDER: Few small benign bilateral renal cysts, no follow-up needed. No urinary stone or hydronephrosis. BOWEL: Mild colonic diverticulosis. No acute findings. No evidence of diverticulitis or colitis. No evidence of bowel obstruction. Right partial colectomy with right anterior abdominal anastomosis. No evidence of recurrent tumor in this location. No free air, free fluid or abscess. Moderate volume stool scattered throughout the colon. LYMPH NODES: Conglomerate wellington mass in the central mesentery measures 2.1 x 3.2 cm (series 2, image 80), unchanged in size since 09/12/2022 PET/CT, which demonstrated no residual FDG activity at that time, consistent with stable posttreatment scarring. No new or enlarging adenopathy in the abdomen or pelvis. VASCULATURE: Mild atherosclerotic calcifications. Normal caliber abdominal aorta. PELVIC ORGANS: Normal. MUSCULOSKELETAL: No discrete suspicious osseous lesion. Mild scattered degenerative changes in the spine. Small bilateral fat-containing inguinal hernias. Procedure Note Genaro Birmingham MD - 01/17/2023 For Patients: As a result of the Century Cures Act, medical imagingexams and procedure reports are released immediately into your electronicmedical record. You may view this report before your referring provider.If you have questions, please contact your health care provider. EXAM: CT ABDOMEN PELVIS WO LOCATION: [facility] DATE: 01/17/2023 INDICATION: Abdominal Pain, Generalized. He had surgery for colon cancerabout 1.5 years ago and has had diffuse abdominal pain for 4 weeks. COMPARISON: PET/CT 09/12/2022, CT chest abdomen pelvis 04/24/2022reviewed. TECHNIQUE: CT scan of the abdomen and pelvis was performed without IVcontrast. Multiplanar reformats were obtained. Dose reduction techniqueswere used. CONTRAST: None. FINDINGS: LOWER CHEST: Mild bandlike scarring or atelectasis in the lower lungs.Coronary artery calcification. HEPATOBILIARY: Cholecystectomy. Normal noncontrast liver. PANCREAS: Normal. SPLEEN: Normal. ADRENAL GLANDS: Normal. KIDNEYS/BLADDER: Few small benign bilateral renal cysts, no follow-upneeded. No urinary stone or hydronephrosis. BOWEL: Mild colonic diverticulosis. No acute findings. No evidence ofdiverticulitis or colitis. No evidence of bowel obstruction. Right partialcolectomy with right anterior abdominal anastomosis. No evidence ofrecurrent tumor in this location. No free air, free fluid or abscess.Moderate volume stool scattered throughout the colon. LYMPH NODES: Conglomerate wellington mass in the central mesentery measures 2.1x 3.2 cm (series 2, image 80), unchanged in size since 09/12/2022 PET/CT,which demonstrated no residual FDG activity at that time, consistent withstable posttreatment scarring. No new or enlarging adenopathy in theabdomen or pelvis. VASCULATURE: Mild atherosclerotic calcifications. Normal caliber abdominalaorta. PELVIC ORGANS: Normal. MUSCULOSKELETAL: No discrete suspicious osseous lesion. Mild scattereddegenerative changes in the spine. Small bilateral fat-containing inguinalhernias. IMPRESSION: No acute findings in the abdomen or pelvis. Vamshi Hewitt MD CT from Last 3 Months Advance Directives Latest Code Status on File Code Status Date Activated Date Inactivated Comments Full Code 03/28/2022 7:18 AM 03/28/2022 2:41 PM Question Answer Comments Code Status Discussion: Reviewed Preferences Care Teams Pet Care Associate Relationship Specialty [place] [address] [place] [address] PCP - General 11/04/06
--- OUTSIDE RECORDS SUMMARY | 2023-03-19 00:04 | XMS_ITS ---
Author Name Unknown Organization [place] Address [facility] [place] [address] Care Team Providers Care Paper Making Machine Operator Name Role Phone Vamshi Hewitt MD Primary Care Provider Silvia Montiel MD Unavailable Active Problems Problem Noted Date Diagnosed Date Pulmonary nodules 07/20/2021 Gastrointestinal hemorrhage, unspecified gastrointestinal hemorrhage type 07/20/2021 Anemia, unspecified type 07/20/2021 Colon polyp 07/18/2021 Prostate cancer 05/11/2021 Diverticulitis of colon 01/28/2020 Acute ischemic stroke 01/02/2020 Cerebrovascular accident (CVA), unspecified mech anism 01/02/2020 Current Oncology Plans OP ONC Prostate Cancer - Leuprolide Depot (Lupron) EVERY 6 MONTHS* Plan Start Date:05/23/2021 Plan Provider:Matteo Del Angel MD Linked Problems Prostate cancer (H) Treatment Medications Current Day (Day 1, Cycle 2 - Planned for 11/07/2021) leuprolide (LUPRON DEPOT) leuprolide (LUPRON DEP OT) kit 45 mg Past Plans No past plan information found. Radiation Treatments * No radiation treatments are documented for this [facility] in [facility]. Treatments may have been administered in another system.
--- OUTSIDE RECORDS SUMMARY | 2023-03-19 00:04 | XMS_ITS | Encounter Summary ---
Author Name Unknown Organization [place] Address [facility] [place] [address] Care Team Providers Care Shoe Handler Name Role Phone Vamshi Hewitt MD Primary Care Provider + [phone] Matteo Del Angel MD Unavailable [phone] Encounter Details Date Type Department Care Team (Late st Contact Info) Description 10/26/2022 11:20 AM CDT Lab [facility] [address] [place] [address] Thyroid nodule Social History Tobacco Use Types Packs/Day Years [...] on file documented as of this encounter Procedures Procedure Name Priority Date/Time Associated Diagnosis Comments TSH WITH FREE T4 REFLEX Routine 10/26/2022 12:15 PM CDT Thyroid nodule documented in this encounter Results * TSH with free T4 reflex (10/26/2022 12:15 PM CDT) TSH 0.98 0.30 - 4.20 uIU/mL 10/26/2022 12:38 PM CDT LABORATORY Blood BLOOD SPECIMEN / Unknown Venipuncture / Unknown 10/26/2022 12:15 PM CDT 10/26/2022 12:15 PM CDT Silvia Montiel MD LAB - BLOOD ORDERA BLES [facility] [address] Lab (1st floor, no room number) [place] [address], [facility] [phone] documented in this encounter Visit Diagnoses Diagnosis Thyroid nodule Nontoxic uninodular goiter documented in this encounter Care Teams Shoe Handler Relationship Specialty [place] [address] [place] [address] PCP - General Family Practice 07/29/12 Matteo Del Angel MD [address] [place] [id number] Assigned Surgical Provider 02/26/21 documented as of this encounter
--- OUTSIDE RECORDS SUMMARY | 2023-03-19 00:05 | XMS_ITS | Encounter Summary ---
Author Name Unknown Organization [place] Address [address] [facility] [place] [address] Care Team Providers Care Office Clerk Name Role Phone Vamshi Hewitt MD Primary Care Provider + [phone] Matteo Del Angel MD Unavailable [phone] Encounter Details Date Type Department Care Team (Latest Contact Info) Description 10/11/2022 Travel Social History Tobacco Use Types Packs/Day Years Used Date Smoking Tobacco: Never Smokeless Tobacco: Never Alcohol Use Standard [...] was confirmed or suspected to have Coronavirus/COVID-19? No / Unsure 10/11/2022 12:58 PM CDT documented as of this encounter Plan of Treatment Not on file documented as of this encounter Visit Diagnoses Not on filedocumented in this encounter Care Teams Office Clerk Relationship Specialty [place] [address] [place] [address] PCP - General Family Practice 07/29/12 Matteo Del Angel MD [address] [place] [address] Assigned Surgical Provider 02/26/21 documented as of this encounter
--- OUTSIDE RECORDS SUMMARY | 2023-03-19 00:05 | XMS_ITS | Encounter Summary ---
Author Name Unknown Organization [place] Address [address] [facility] [place] [address] Care Team Providers Care Contact Lens Fitter Name Role Phone Vamshi Hewitt MD Primary Care Provider + [phone] Matteo Del Angel MD Unavailable [phone] Encounter Details Date Type Department Care Team (Latest Contact Info) Description 10/09/2022 Travel Social History Tobacco Use Types Packs/Day [...] suspected to have Coronavirus/COVID-19? No / Unsure 10/09/2022 7:38 PM CDT documented as of this encounter Plan of Treatment Not on file documented as of this encounter Visit Diagnoses Not on filedocumented in this encounter Care Teams Contact Lens Fitter Relationship Specialty [place] [address] [place] [phone] PCP - General Family Practice 07/29/12 Matteo Del Angel MD [address] [place] [address] Assigned Surgical Provider 02/26/21 documented as of this encounter
--- OUTSIDE RECORDS SUMMARY | 2023-03-19 00:05 | XMS_ITS | Encounter Summary ---
Author Name Unknown Organization [place] Address [facility] [place] [address] Care Team Providers Care Corporate Scheduler Name Role Phone Vamshi Hewitt MD Primary Care Provider + [phone] Matteo Del Angel MD Unavailable [phone] Encounter Details Date Type Department Care Team (Late st Contact Info) Description 09/26/2022 Orders Only [facility] [address] [place] [address] Matteo Del Angel MD [address] [place] [address] Prostate cancer (H) (Primary Dx) Social History Tobacco Use Types Packs/Day Years [...] suspected to have Coronavirus/COVID-19? Unable to assess 09/19/2022 4:47 PM CDT documented as of this encounter Plan of Treatment Scheduled Orders Name Type Priority Associated Diagnoses Orde r Schedule PSA tumor marker (Send Out) [[id number]] Lab Routine Prostate cancer (H) Expected: 09/26/2022 (Approximate), Expires: 09/27/2023 documented as of this encounter Visit Diagnoses Diagnosis Prostate cancer (H)- Primary Malignant neoplasm of prostate documented in this encounter Care Teams Corporate Scheduler Relationship Specialty [place] [address] [place] [address] PCP - General Family Practice 07/29/12 Matteo Del Angel MD [address] [place] [address] Assigned Surgical Provider 02/26/21 documented as of this encounter
--- OUTSIDE RECORDS SUMMARY | 2023-03-19 00:05 | XMS_ITS | Encounter Summary ---
Author Name Unknown Organization [place] Address [address] [facility] [place] [address] Care Team Providers Care Animal Nurse Name Role Phone Vamshi Hewitt MD Primary Care Provider + [phone] Matteo Del Angel MD Unavailable [phone] Reason for Visit * Diagnostic Imaging Ultrasound (Routine) - Pending Review Specialty Diagnoses / Procedures Referred By Chana arcos Referred To Contact Radiology. 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 5 x 400 mg = 2000 mg) 0 aspirin 81 MG EC tablet Take 81 mg by mouth daily 0 lisinopril-hydrochloroth iazide (ZESTORETIC) 20-12.5 MG tablet Take 1 tablet by mouth daily 0 metoprolol succinate ER (TOPROL-XL) 100 MG 24 hr tablet Take 100 mg by mouth daily 0 oxybutynin ER (DITROPAN XL) 5 MG 24 hr tabletIndications:Overac tive bladder Take 1 tablet (5 mg) by mouth daily 90 tablet 1 02/20/2022 oxyCODONE (ROXICODONE) 5 MG tabletIndications:Polyp of ascending colon, unspecified type Take 1-2 tablets (5-10 mg) by mouth every 6 hours as needed for moderate to severe pain 12 tablet 0 07/22/2021 Polyvinyl Alcohol-Povidone (REFRESH OP) Place 1 drop into both eyes as needed (for dry eyes) 0 documented as of this encounter Plan of Treatment Not on file documented as of this encounter Procedures Procedure Name Priority Date/Time Associated Diagnosis Comments US THYROID Routine 10/09/2022 8:14 PM CDT 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 Consider FNA of the right inferior/mid isthmus nodule as this is favored to correlate to the focal hypermetabolic uptake on recent PET/CT. Nodules are characterized per ACR Thyroid Imaging, Reporting and Data System (TI-RADS): White Paper of the ACR TI-RADS Committee Reynaldo Kennedy et al. Journal of the [place] [employer] 2017. Volume 14 (2017), Issue 5, 895-026. 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 TECHNIQUE: Thyroid ultrasound. FINDINGS: RIGHT lobe: 5.9 x 2.7 x 1.7 cm. Heterogenous echotexture. Isthmus: 8 mm. LEFT lobe: 6.1 x 3.1 x 2.1 cm. Heterogenous echotexture. NODULES: Nodule 1: Midpole of the right thyroid lobe measuring 3.0 x 2.4 x 2.4 cm. Composition: Solid or almost completely solid, 2 points Echogenicity: Hyperechoic or isoechoic, 1 point Shape: Not taller than wide, 0 points Margin: Ill-defined, 0 points Echogenic Foci: None, or large comet-tail artifacts, 0 points Point Total: 3 points. TI-RADS 3. If 2.5 cm or larger, recommend FNA; if 1.5 cm or larger, recommend follow up US at 1, 3, and 5 years. ?? Nodule 2: Midpole of the left thyroid lobe measuring 4.9 x 2.6 x 3.0 cm. Composition: Solid or almost completely solid, 2 points Echogenicity: Hyperechoic or isoechoic, 1 point Shape: Not taller than wide, 0 points Margin: Ill-defined, 0 points Echogenic Foci: None, or large comet-tail artifacts, 0 points Point Total: 3 points. TI-RADS 3. If 2.5 cm or larger, recommend FNA; if 1.5 cm or larger, recommend follow up US at 1, 3, and 5 years. Nodule 3: Superior Isthmus nodule measuring 2.5 x 2.5 x 1.2 cm. Composition: Solid or almost completely solid, 2 points Echogenicity: Hyperechoic or isoechoic, 1 point Shape: [id number], 0 points Margin: Ill-defined, 0 points Echogenic Foci: Macrocalcifications, 1 point Point Total: 4-6 points. TI-RADS 4. If 1.5 cm or larger, recommend FNA; if 1 cm or larger, follow up US (annually for 5 years). Nodule 4: Mid/inferior Isthmus nodule measuring 1.1 x 0.9 x 1.1 cm. This may correlate to the hypermetabolic nodule seen on prior PET Composition: Solid or almost completely solid, 2 points Echogenicity: Hyperechoic or isoechoic, 1 point Shape: Not taller than wide, 0 points Margin: Ill-defined, 0 points Echogenic Foci: None, or large comet-tail artifacts, 0 points Point Total: 3 points. TI-RADS 3. If 2.5 cm or larger, recommend FNA; if 1.5 cm or larger, recommend follow up US at 1, 3, and 5 years. Multiple additional thyroid nodules. Procedure Note Gm Collins MD - 10/10/2022 EXAM: US THYROID LOCATION: [facility] DATE: 10/09/2022 INDICATION: Grade II follicular lymphoma of extranodal and solid organsites (H) COMPARISON: PET 09/12/2022. TECHNIQUE: Thyroid ultrasound. FINDINGS: RIGHT lobe: 5.9 x 2.7 x 1.7 cm. Heterogenous echotexture. Isthmus: 8 mm. LEFT lobe: 6.1 x 3.1 x 2.1 cm. Heterogenous echotexture. NODULES: Nodule 1: Midpole of the right thyroid lobe measuring 3.0 x 2.4 x 2.4 cm. Composition: Solid or almost completely solid, 2 points Echogenicity: Hyperechoic or isoechoic, 1 point Shape: Not taller than wide, 0 points Margin: Ill-defined, 0 points Echogenic Foci: None, or large comet-tail artifacts, 0 points Point Total: 3 points. TI-RADS 3. If 2.5 cm or larger, recommend FNA; if1.5 cm or larger, recommend follow up US at 1, 3, and 5 years. Nodule 2: Midpole of the left thyroid lobe measuring 4.9 x 2.6 x 3.0 cm. Composition: Solid or almost completely solid, 2 points Echogenicity: Hyperechoic or isoechoic, 1 point Shape: Not taller than wide, 0 points Margin: Ill-defined, 0 points Echogenic Foci: None, or large comet-tail artifacts, 0 points Point Total: 3 points. TI-RADS 3. If 2.5 cm or larger, recommend FNA; if1.5 cm or larger, recommend follow up US at 1, 3, and 5 years. Nodule 3: Superior Isthmus nodule measuring 2.5 x 2.5 x 1.2 cm. Composition: Solid or almost completely solid, 2 points Echogenicity: Hyperechoic or isoechoic, 1 point Shape: [id number], 0 points Margin: Ill-defined, 0 points Echogenic Foci: Macrocalcifications, 1 point Point Total: 4-6 points. TI-RADS 4. If 1.5 cm or larger, recommend FNA; if1 cm or larger, follow up US (annually for 5 years). Nodule 4: Mid/inferior Isthmus nodule measuring 1.1 x 0.9 x 1.1 cm. Thismay correlate to the hypermetabolic nodule seen on prior PET Composition: Solid or almost completely solid, 2 points Echogenicity: Hyperechoic or isoechoic, 1 point Shape: Not taller than wide, 0 points Margin: Ill-defined, 0 points Echogenic Foci: None, or large comet-tail artifacts, 0 points Point Total: 3 points. TI-RADS 3. If 2.5 cm or larger, recommend FNA; if1.5 cm or larger, recommend follow up US at 1, 3, and 5 years. Multiple additional thyroid nodules. IMPRESSION: Multinodular goiter with index thyroid nodules as above. Consider FNA ofthe right inferior/mid isthmus nodule as this is favored to correlate tothe focal hypermetabolic uptake on recent PET/CT. Nodules are characterized per ACR Thyroid Imaging, Reporting and Data System (TI-RADS): White Paper ofthe ACR TI-RADS Committee Reynaldo Kennedy et al. Journal of the [place] [employer] of [employer]. Volume 14 (2017), Issue 5, 097-708. 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
--- OUTSIDE RECORDS SUMMARY | 2023-03-19 00:05 | XMS_ITS | Encounter Summary ---
Author Name Unknown Organization [place] Address [address] [facility] [place] [address] Care Team Providers Care Legal Aide Name Role Phone Vamshi Hewitt MD Primary Care Provider + [phone] Matteo Del Angel MD Unavailable [phone] Encounter Details Date Type Department Care Team (Latest Contact Info) Description 10/10/2022 Travel Social History Tobacco Use Types Packs/Day [...] suspected to have Coronavirus/COVID-19? No / Unsure 10/10/2022 9:51 AM CDT documented as of this encounter Plan of Treatment Not on file documented as of this encounter Visit Diagnoses Not on filedocumented in this encounter Care Teams Legal Aide Relationship Specialty [place] [address] [place] [phone] PCP - General Family Practice 07/29/12 Matteo Del Angel MD [address] [place] [address] Assigned Surgical Provider 02/26/21 documented as of this encounter
--- OUTSIDE RECORDS SUMMARY | 2023-03-19 00:05 | XMS_ITS | Encounter Summary ---
Author Name Unknown Organization [place] Address [facility] [place] [address] Care Team Providers Care Medical Technologist Chief Name Role Phone Vamshi Hewitt MD Primary Care Provider + [phone] Matteo Del Angel MD Unavailable [phone] Reason for Referral * Diagnostic Imaging Ultrasound (Routine) - Closed Specialty Diagnoses / Procedures Referred By Contac t Referred To Contact Radiology. 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 Chiu without difficulty, patient tolerated well. All discharge criteria were met and patient discharged to home ambulatory by self in stable condition. 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 SIMA CHIU DO Narrative 10/11/2022 4:24 PM CDT US BIOPSY THYROID FINE NEEDLE ASPIRATION ?? 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 Thyroid nodule. Positive nodule on outside PET CT, corresponding to nodule #4 on recent thyroid ultrasound. COMPARISON: PET CT 09/12/2022, ultrasound thyroid 10/09/2022. TECHNIQUE: The risks and benefits were described to the patient. Informed consent was obtained. Limited preprocedure ultrasound was performed, images show bilateral thyroid nodules. An image is archived. The skin over the midline/right neck was prepped and draped in a sterile manner. 1% lidocaine was used for local anesthesia. Under direct ultrasound guidance, a 25-gauge needle was directed into the isthmus nodule labeled #4. FNA performed and fixed and air dried slides were prepared. Additional ??fine-needle aspirates were submitted in a similar manner. Images were obtained during the biopsy. 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 Thyroid nodule. Positive nodule on outside PET CT, corresponding to nodule #4 on recent thyroid ultrasound. COMPARISON: PET CT 09/12/2022, ultrasound thyroid 10/09/2022. TECHNIQUE: The risks and benefits were described to the patient. Informed consent was obtained. Limited preprocedure ultrasound was performed, images show bilateral thyroid nodules. An image is archived. The skin over the midline/right neck was prepped and draped in a sterile manner. 1% lidocaine was used for local anesthesia. Under direct ultrasound guidance, a 25-gauge needle was directed into the isthmus nodule labeled #4. FNA performed and fixed and air dried slides were prepared. Additional fine-needle aspirates were submitted in a similar manner. Images were obtained during the biopsy. IMPRESSION: Successful ultrasound-guided fine-needle aspiration of thyroid nodule previously labeled #4. SIMA CHIU DO Rodney Garrett MD IMG US ORDERABLES * Afirma Thyroid FNA Analysis (10/11/2022 1:03 PM CDT) See Scanned Result See Scanned Result RIMA 11/07/2022 7:46 AM CDT [facility] Fine Needle Aspiration STRUCTURE OF ISTHMUS OF THYROID GLAND / Unknown Non-blood Collection / Unknown 10/11/2022 1:03 PM CDT 10/26/2022 2:00 PM CDT Silvia Montiel MD [facility] Organization Address City/State/ZIP Co de Phone Number [facility] CLIA [id number] [address] [address], [facility] [phone] * (ABNORMAL) Fine Needle Aspirate Thyroid, Right (10/11/2022 1:03 PM CDT) Final Diagnosis Specimen A Interpretation: Atypia of Undetermined Significance (AUS) (Please see comment and microscopic description) Adequacy: Satisfactory for evaluation 10/15/2022 9:06 AM CDT LABORATORY Comment The [place] implied risk of malignancy and recommended clinical management: Atypia of undetermined significance has a 10-30% risk of malignancy, recommend repeat FNA in 4-6 weeks, molecular testing or lobectomy 10/15/2022 9:06 AM CDT LABORATORY Gross Description A(1). Thyroid, Right, Isthmus nodule measuring 1 x 0.9 x 1.1 cm. This may correlate to the hypermetabolic nodule seen on prior PET:A. Thyroid, Right, Isthmus nodule measuring 1 x 0.9 x 1.1 cm. This may correlate to the hypermetabolic nodule seen on prior PET, Fine Needle Aspirate: Received are 7 fixed slides, processed for Pap stain, and 2 air dried slides, processed for Moreira stain. Afirma tube held. 10/15/2022 9:06 AM T [facility] Microscopic Description The smears show moderate cellularity and abundant watery colloid. The follicular epithelial cells appear small and uniform, however with focal crowding, nuclear overlap, chromatin clearing and grooves. Focal Hurthle cell metaplasia, numerous hemosiderin laden macrophages,and rare multinucleated cells are present. Definitive nuclear pleomorphism, nuclear pseudoinclusions or psammoma bodies are not present. As such the diagnosis is rendered as atypia of undetermined significance (AUS). Clinical and radiologic correlation is recommended. Molecular testing (Afirma) may be performed for further evaluation 10/15/2022 9:[address] [facility] Abnormal Result? Yes(A) No 10/15/2022 9:06 AM T LABORATORY Performing Labs The technical component of this testing was completed at [facility] 10/15/2022 9:06 AM T [facility] Fine Needle Aspiration STRUCTURE OF RIGHT LOBE OF THYROID GLAND / Unknown 10/11/2022 1:03 PM CDT 10/11/2022 2:09 PM CDT Rodney COHEN - [facility] Acute Care Lab [address] Lab (1st floor, no room number) [place] [address], [place] [phone] SPECIALTY LABS Specialty Lab [address] [facility] Building, [address] [place] [address], [place] [phone] documented in this encounter Visit Diagnoses Diagnosis 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) Nodular lymphoma, unspecified site, extranodal and solid organ sites Thyroid nodule Nontoxic uninodular goiter documented in this encounter Administered Medications Inactive Administered Medications - up to 3 most recent administrations Medication Order MAR Action Action Date Dose Rate Site lidocaine 1 % 10 mL 10 mL, Subcutaneous, ONCE, On Emi 10/11/22 at 1330, For 1 dose $Given by Other 10/11/2022 1:10 PM CDT 10 mLs documented in this encounter Care Teams Medical Technologist Chief Relationship Specialty [place] [address] [place] [address] PCP - General Family Practice 07/29/12 Matteo Del Angel MD [address] [place] [address] Assigned Surgical Provider 02/26/21 documented as of this encounter
--- OUTSIDE RECORDS SUMMARY | 2023-03-19 00:05 | XMS_ITS | Encounter Summary ---
Author Name Unknown Organization [place] Address [address] [facility] [place] [address] Care Team Providers Care Mobile Equipment Operator Name Role Phone Vamshi Hewitt MD Primary Care Provider + [phone] Matteo Del Angel MD Unavailable [phone] Reason for Visit * Reason Comments Consult Atypical thyroid nod ule Encounter Details Date Type Department Care Team (Late st Contact Info) Description 10/26/2022 10:15 AM CDT Office Visit [facility] [place] [address] [facility] [place] [address] Silvia Montiel MD [facility] [place], [place] [address] [place] [address] Thyroid nodule (Primary Dx) Social History Tobacco Use Types [...] AM CDT documented as of this encounter Last Filed Vital Signs Vital Sign Reading Time Taken Comments Blood Pressure 110/78 10/26/2022 10:16 AM CDT Pulse 59 10/26/2022 10:16 AM CDT Temperature - - Respiratory Rate 15 10/26/2022 10:16 AM CDT Oxygen Saturation 98% 10/26/2022 10:16 AM CDT Inhaled Oxygen Concentration - - Weight 81.6 kg (180 lb) 10/26/2022 10:16 AM CDT Height 175.3 cm (5' 9) 10/26/2022 10:16 AM CDT Body Mass Index 26.58 10/26/2022 10:16 AM CDT documented in this encounter Progress Notes * Silvia Montiel MD - 10/26/2022 10:15 AM CDT History of Present Illness Rivera Covarrubias is a 71 year old male who is referred from Dr. Zafar Watkins for surgery consultation regarding a 1.1 cm nodule in the right isthmus with an FNA showing atypia of undetermined significance (AUS). He has a history of multiple malignancies over the past couple of years including adenocarcinoma of colon, now status post partial colectomy, prostate cancer, now status post radiation therapy, and follicular lymphoma, status post chemotherapy. He was undergoing a PET scan when he was found to have an FDG avid thyroid nodule. He has a historyof multinodular goiter and has undergone surveillance ultrasounds for at least 8 years. In 2014 he had 3 largest nodules biopsied (right, left, and larger of the 2 isthmus nodules) and all were benign. In September 2021, he had repeat biopsies of the right and left dominant nodules. The right nodule was benign, the left nodule was initially AUS, but then Afirma testing downgraded to a benign nodule. He comes to surgery clinic today with a new FNA of his smallest nodule, measuring 1.1 cm in maximaldimension and located in the right isthmus. This particular nodule has never been biopsied. He reports fatigue over the last couple of years, but indicates that he has many reasons for this including chemotherapy. He otherwise denies weight changes, heat/cold intolerance, bowel/skin changesor CVS symptoms. He denies swallowing difficulty, shortness of breath, frequent throat clearing, cough, and hoarseness. He does not have a family history of thyroid cancer. He denies a personal history of radiation exposure to his neck/chest. Rivera is not on thyroid medications. His TSH is normal at 0.98 ??IUs/mL. Rivera has no prior neck surgery. Work up to date: Imaging: Recent Results (from the past 744 hour(s)) US Thyroid Narrative EXAM: US THYROID LOCATION: [facility] DATE: 10/09/2022 INDICATION: Grade II follicular lymphoma [...] Echogenicity: Hyperechoic or isoechoic, 1 point Shape: [id number], 0 points Margin: Ill-defined, 0 points Echogenic [...] and 5 years. Multiple additional thyroid nodules. Impression IMPRESSION: Multinodular goiter with index thyroid nodules as above. Consider FNA of the right inferior/mid isthmus nodule as this is favored to correlate to the focal hypermetabolic uptake on recent PET/CT. Nodules are characterized per ACR Thyroid Imaging, Reporting and Data System (TI-RADS): White Paper of the ACR TI-RADS Committee Reynaldo Kennedy et al. Journal of the [place] [employer] 2017. Volume 14 (2017), Issue 5, [id number]. US Biopsy Thyroid Fine Needle Aspiration Narrative US BIOPSY THYROID FINE NEEDLE ASPIRATION 10/11/2022 [...] manner. Images were obtained during the biopsy. Impression IMPRESSION: Successful ultrasound-guided fine-needle aspiration of thyroid nodule previously labeled #4. JOHANA CHIU DO FNA biopsy results: Specimens A Thyroid, Right, Isthmus nodule measuring 1 x 0.9 x 1.1 cm. This may correlate to the hypermetabolic nodule seen on prior PET Final Diagnosis Specimen A Interpretation: Atypia of Undetermined Significance (AUS) (Please see comment and microscopic description) Adequacy: Satisfactory for evaluation Labs: TSH: 0.98 Past Medical History: Past Medical History: Diagnosis Date Hypertension Past Surgical History: Past Surgical History: Procedure Laterality Date APPENDECTOMY CHOLECYSTECTOMY COLONOSCOPY N/A 07/21/2021 Procedure: COLONOSCOPY; Surgeon: Kal Malik MD; Location: [facility] COLECTOMY Right 07/18/2021 Procedure: ROBOTIC RIGHT COLECTOMY; Surgeon: Kal Malik MD; Location: OR Social History: Social History Tobacco Use Smoking status: Never Passive exposure: Never Smokeless tobacco: Never Vaping Use Vaping Use: Never used Substance Use Topics Alcohol use: No Drug use: Never ROS: The 10 point review of systems is negative other than noted in the HPI. Physical Exam: BP 110/78 Pulse 59 Resp 15 Ht 1.753 m (5' 9) Wt 81.6 kg (180 lb) SpO2 98% BMI 26.58 kg/m?? Well developed, well nourished male in no apparent distress. HEENT: Normocephalic, atraumatic. Eyes without exophthalmos. Neck: Normal appearance. Range of motion is normal. No neck masses on visual inspection. Thyroid: Symmetrically enlarged. Distinctive nodules are not palpable. Lymph: No cervical adenopathy. Respirations: Unlabored. Neurologic: Alert. Speech is clear. Moves all extremities with good strength Skin: Warm and dry Psychologic: Alert and appropriate range of emotions. Assessment and Plan: Rivera has multiple thyroid nodules, both of which are distinctly noted on thyroid ultrasound. The largest 3 of these have been previously biopsied as benign. However, his small is nodule, a 1.1 cm nodule at the confluence of the right thyroid lobe and the isthmus is FDG avid and has not biopsied as atypia of undetermined significance, which confers a 10 to 30% malignancy risk. We discussed that most FDG avid thyroid nodules are still benign and that with AUS on cytology, there are 3 options for next steps: 1. Repeat the FNA in 3 months. Often this will not provide a more concrete answer unless it clearlycomes back positive for cancer. 2. Do molecular or DNA testing on the biopsied tissue, looking for mutations that are seen with thyroid cancer or that raise the risk of the nodule being cancer. Most commonly at our institution thisis with Afirma molecular testing. If Afirma is benign then repeat US one year. If Afirma is anything other than benign, he should have surgical removal of at least the affected lobe. 3. Perform a thyroid lobectomy where the nodule is located. This allows a firm diagnosis of the nodule, but it has the disadvantage of removing half of the thyroid and the potential risks of surgery. At this point, I am recommending molecular testing with Afirma. He has actually had a nodule downgraded using Afirma in the past, and this is what we will hope for this time as well. Results typically take 2 to 3 weeks to return and I will discuss the results with him over the phone. We did review thyroid surgery today in case it is needed. Rivera is aware of the risks to the recurrent laryngeal n erve and to the parathyroid glands during surgery. Silvia Montiel MD Please route to Primary Care Provider (PCP) and Referring Provider 45 minutes total time spent on the date of this encounter doing: chart review, review of test results, patient visit, physical exam, education, counseling, developing plan of care, and documenting. documented in this encounter Plan of Treatment Not on file documented as of this encounter Results * TSH with free T4 reflex (10/26/2022 12:15 PM CDT) TSH 0.98 0.30 - 4.20 uIU/mL 10/26/2022 12:38 PM CDT LABORATORY Blood BLOOD SPECIMEN / Unknown Venipuncture / Unknown 10/26/2022 12:15 PM CDT 10/26/2022 12:15 PM CDT Silvia Montiel MD LAB - BLOOD ORDERA BLES LABORATORY [facility] Lab [address] Lab (1st floor, no room number) [place] [address], [facility] [phone] * Afirma Thyroid FNA Analysis (10/11/2022 1:03 PM CDT) See Scanned Result See Scanned Result [facility] 11/07/2022 7:46 AM CDT [employer] Fine Needle Aspiration STRUCTURE OF ISTHMUS OF THYROID GLAND / Unknown Non-blood Collection / Unknown 10/11/2022 1:03 PM CDT 10/26/2022 2:00 PM CDT Silvia Montiel MD LAB - [employer] CLIA [id number] [address] [address], [place] [phone] documented in this encounter Visit Diagnoses Diagnosis Thyroid nodule- Primary Nontoxic uninodular goiter documented in this encounter Care Teams Mobile Equipment Operator Relationship Specialty [place] [address] [facility] [place] [address] PCP - General Family Practice 07/29/12 Matteo Del Angel MD [address] [place] [address] Assigned Surgical Provider 02/26/21 documented as of this encounter
--- OUTSIDE RECORDS SUMMARY | 2023-03-19 00:05 | XMS_ITS | Encounter Summary ---
Author Name Unknown Organization [place] Address [address] [facility] [place] [address] Care Team Providers Care Inspector And Hand Packager Name Role Phone Vamshi Hewitt MD Primary Care Provider + [phone] Matteo Del Angel MD Unavailable [phone] Encounter Details Date Type Department Care Team (Late st Contact Info) Description 10/09/2022 - 10/09/2022 10:[address] [facility] Emergency Dept [address] [place] [address] Discharge Disposition: ED Dismiss - Never Arrived Social History Tobacco Use Types Packs/Day Years [...] on filedocumented in this encounter Care Teams Inspector And Hand Packager Relationship Specialty [place] [address] [place] [address] PCP - General Family Practice 07/29/12 Matteo Del Angel MD [address] [place] [address] Assigned Surgical Provider 02/26/21 documented as of this encounter
--- OUTSIDE RECORDS SUMMARY | 2023-03-19 00:06 | XMS_ITS | Encounter Summary ---
Author Name Unknown Organization [place] Address [address] [facility] [place] [address] Care Team Providers Care Vacuum Filter Operator Name Role Phone Vamshi Hewitt MD Primary Care Provider + [phone] Matteo Del Angel MD Unavailable [phone] Silvia Montiel MD Unavailable [phone] Encounter Details Date Type Department Care Team (Late st Contact Info) Description 09/26/2022 MyC Medical Advice [facility] Urology Clinic [place] [address] [place] [address] Sonam Lee Social History Tobacco Use Types Packs/Day Years [...] on filedocumented in this encounter Care Teams Vacuum Filter Operator Relationship Specialty [place] [address] [place] [address] PCP - General Family Practice 07/29/12 Matteo Del Angel MD [address] [place] [id number] Assigned Surgical Provider 02/26/21 Silvia Montiel MD [facility] [address] [facility] [address] [place], [place] [phone] Assigned Surgical Provider 11/03/22 documented as of this encounter
--- OUTSIDE RECORDS SUMMARY | 2023-03-19 00:06 | XMS_ITS | Encounter Summary ---
Author Name Unknown Organization [place] Address [address] [facility] [place] [address] Care Team Providers Care Humidifier Maintenance Worker Name Role Phone Vamshi Hewitt MD Primary Care Provider + [phone] Matteo Del Angel MD Unavailable [phone] Encounter Details Date Type Department Care Team (Latest Contact Info) Description 09/19/2022 Travel Social History Tobacco Use Types Packs/Day [...] on filedocumented in this encounter Care Teams Humidifier Maintenance Worker Relationship Specialty [place] [address] [place] [address] PCP - General Family Practice 07/29/12 Matteo Del Angel MD [address] [place] [address] Assigned Surgical Provider 02/26/21 documented as of this encounter
--- OUTSIDE RECORDS SUMMARY | 2023-03-19 00:06 | XMS_ITS | Encounter Summary ---
Author Name Unknown Organization [place] Address [address] [facility] [place] [address] Care Team Providers Care Ware Cleaner Name Role Phone Vamshi Hewitt MD Primary Care Provider + [phone] Matteo Del Angel MD Unavailable [phone] Silvia Montiel MD Unavailable [phone] Encounter Details Date Type Department Care Team (Late st Contact Info) Description 06/07/2022 [facility] [place] [facility] Interventional Radiology [address] [place] [address] Lin Bond, SUMMER Social History Tobacco Use Types Packs/Day Years [...] on file Sexual Orientation Not on file documented as of this encounter Plan of Treatment Not on file documented as of this encounter Visit Diagnoses Not on filedocumented in this encounter Care Teams Ware Cleaner Relationship Specialty [place] [address] [place] [address] PCP - General Family Practice 07/29/12 Matteo Del Angel MD [address] [place] [address] Assigned Surgical Provider 02/26/21 Silvia Montiel MD [facility] [address] [facility] [address] [place] [address] Assigned Surgical Provider 11/03/22 documented as of this encounter
--- OUTSIDE RECORDS SUMMARY | 2023-03-19 00:06 | XMS_ITS | Encounter Summary ---
Author Name Unknown Organization [place] Address [address] [facility] [place] [address] Care Team Providers Care Skatesman Name Role Phone Vamshi Hewitt MD Primary Care Provider + [phone] Matteo Del Angel MD Unavailable [phone] Silvia Montiel MD Unavailable [phone] Encounter Details Date Type Department Care Team (Late st Contact Info) Description 02/08/2021 MyC Medical Advice [facility] Urology Clinic [address] [place] [address] Zara Preciado Social History Tobacco Use Types Packs/Day Years [...] care, and heating? Not very hard 02/05/2020 Hunger Vital Sign Answer Date Recorded Within [...] Exposure Response Date Recorded In the last month, have you been in contact with someone who was confirmed or suspected to have Coronavirus / COVID-19? No / Unsure 02/07/2021 3:08 PM INSURANCE RATER documented as of this encounter Plan of Treatment Not on file documented as of this encounter Visit Diagnoses Not on filedocumented in this encounter Care Teams Skatesman Relationship Specialty [place] [address] [place] [address] PCP - General Family Practice 07/29/12 Matteo Del Angel MD [address] [place] [address] [id number] Assigned Surgical Provider 02/26/21 Silvia Montiel MD [facility] [place] [address] [facility] [address] [place], [place] [phone] Assigned Surgical Provider 11/03/22 documented as of this encounter
--- OUTSIDE RECORDS SUMMARY | 2023-03-19 00:06 | XMS_ITS | Encounter Summary ---
Author Name Unknown Organization [place] Address [address] [facility] [place] [address] Care Team Providers Care Information Receptionist Name Role Phone Vamshi Hewitt MD Primary Care Provider + [phone] Matteo Del Angel MD Unavailable [phone] Silvia Montiel MD Unavailable [phone] Reason for Visit * Reason Onset Date Comments Appointment 08/01/2022 Encounter Details Date Type Department Care Team (Late st Contact Info) Description 08/01/2022 Telephone [facility] [address] [place] [address] Matteo Del Angel MD [address] [place], [place] [phone] Appointment Social History Tobacco Use Types Packs/Day Years [...] on file documented as of this encounter Miscellaneous Notes * Telephone Encounter - Cary Ruiz - 08/01/2022 9:24 AM CDT [facility] Call Center Phone Message May a detailed message be left on voicemail: yes Reason for Call: Patient original appt was rescheduled to 08/02/22. Per patient, he cannot attend that appt as it interferes with his cancer treatment appt. Patient is reschedule for first available on 09/20/22 and added to the wait list. Per patient, is there anything sooner. Please reach out to patient. Action Taken: Message routed to: Other: Urology Travel Screening: Not Applicable documented in this encounter Plan of Treatment Not on file documented as of this encounter Visit Diagnoses Not on filedocumented in this encounter Care Teams Information Receptionist Relationship Specialty [place] [address] [place] [address] PCP - General Family Practice 07/29/12 Matteo Del Angel MD [address] [place] [address] Assigned Surgical Provider 02/26/21 Silvia Montiel MD [facility], [place] [address] [place] [address] Assigned Surgical Provider 11/03/22 documented as of this encounter
--- OUTSIDE RECORDS SUMMARY | 2023-03-19 00:06 | XMS_ITS | Encounter Summary ---
Author Name Unknown Organization [place] Address [address] [facility] [place] [address] Care Team Providers Care Boiling House Hand Name Role Phone Vamshi Hewitt MD Primary Care Provider + [phone] Matteo Del Angel MD Unavailable [phone] Silvia Montiel MD Unavailable [phone] Encounter Details Date Type Department Care Team (Late st Contact Info) Description 06/06/[address] [facility] Urology Clinic [place] [address] [place] [address] Sonam Lee Social History Tobacco [...] on filedocumented in this encounter Care Teams Boiling House Hand Relationship Specialty [place] [address] [place] [address] PCP - General Family Practice 07/29/12 MerMatteo MD [address] [place] [address] Assigned Surgical Provider 02/26/21 Silvia Montiel MD [facility] [address] [facility] [address] [place] [address] Assigned Surgical Provider 11/03/22 documented as of this encounter
--- OUTSIDE RECORDS SUMMARY | 2023-03-19 00:06 | XMS_ITS | Encounter Summary ---
Author Name Unknown Organization [place] Address [address] [facility] [place] [address] Care Team Providers Care Deck Mechanic Name Role Phone Vamshi Hewitt MD Primary Care Provider + [phone] Matteo Del Angel MD Unavailable [phone] Silvia Montiel MD Unavailable [phone] Encounter Details Date Type Department Care Team (Late st Contact Info) Description 03/15/2021 MyC Medical Advice [facility] Urology Clinic [address] [place] [address] Zara Preciado Social History Tobacco [...] PHQ-2 Answer Date Recorded PHQ-2 Score 0 03/09/2021 Hunger Vital Sign Answer Date Recorded Within [...] have Coronavirus / COVID-19? No / Unsure 03/03/2021 3:00 PM LONG CHAIN DYEING MACHINE OPERATOR documented as of this encounter Plan of Treatment Not on file documented as of this encounter Visit Diagnoses Not on filedocumented in this encounter Care Teams Deck Mechanic Relationship Specialty [place] [address] [place] [address] PCP - General Family Practice 07/29/12 Matteo Del Angel MD [address] [place] [address] [id number] Assigned Surgical Provider 02/26/21 Silvia Montiel MD [facility] [place] [address] [facility] [address] [place], [place] [phone] Assigned Surgical Provider 11/03/22 documented as of this encounter
--- OUTSIDE RECORDS SUMMARY | 2023-03-19 00:06 | XMS_ITS | Encounter Summary ---
Author Name Unknown Organization [place] Address [address] [facility] [place] [address] Care Team Providers Care Real Estate Legal Assistant Name Role Phone Vamshi Hewitt MD Primary Care Provider + [phone] Matteo Del Angel MD Unavailable [phone] Silvia Montiel MD Unavailable [phone] Reason for Visit * Reason Onset Date Comments Appointment 12/14/2021 Urgent appointme nt Encounter Details Date Type Department Care Team (Late st Contact Info) Description 12/14/2021 Telephone [facility] Urology Clinic [place] [address] [facility] [address] [place] [address] Matteo Del Angel MD [address] [place], [place] [address] Appointment (Urgent appointment ) Social History Tobacco Use Types Packs/Day Years [...] AM CDT documented as of this encounter Miscellaneous Notes * Telephone Encounter - Sima Zayas LPN - 12/14/2021 10:38 AM CDT He just finished Radiation treatment on prostate about a week and a half ago. So he will need an appointment for PSA Please book A lab appointment at [address] [place] [address] About 3-4 Days before his appointment That Needs to be made for about 6-7weeks In BV with Dr Del Angel . * Telephone Encounter - Meagan Hernandez - 12/14/2021 9:10 AM CDT [facility] Phone Message May a detailed message be left on voicemail: yes Reason for Call: Other: Wilmer from cancer clinic called and spoke with call center they state patient will need to be seen marty. Please triage and call patient to schedule marty Action Taken: Message routed to: [facility] Urology Travel Screening: Not Applicable documented in this encounter Plan of Treatment Not on file documented as of this encounter Results * PSA tumor marker [[id number]] (01/22/2022 9:51 AM REPLENISHMENT SPECIALIST) PSA Tumor Marker 0.29 0.00 - 6.50 ng/mL 01/22/2022 8:18 PM REPLENISHMENT SPECIALIST [facility] Blood STRUCTURE OF RIGHT UPPER LIMB / Unknown Venipuncture / Unknown 01/22/2022 9:51 AM REPLENISHMENT SPECIALIST 01/22/2022 9:51 AM REPLENISHMENT SPECIALIST Narrative [facility] - 01/22/2022 8:18 PM REPLENISHMENT SPECIALIST This result is obtained using the Eric [employer] total PSA method on the juhi [id number] immunoassay analyzer. Results obtained with different assay methods or kits cannot be used interchangeably. Matteo Del Angel MD LAB - BLOOD ORDERA BLES [facility] Core Lab [address] [facility], Room [address] [address] [phone] documented in this encounter Visit Diagnoses Diagnosis Prostate cancer (H)- Primary Malignant neoplasm of prostate documented in this encounter Care Teams Real Estate Legal Assistant Relationship Specialty [place] [address] [place] [address] PCP - General Family Practice 07/29/12 Matteo Del Angel MD [address] [place] [id number] Assigned Surgical Provider 02/26/21 Silvia Montiel MD [facility] [address] [place] [address] Assigned Surgical Provider 11/03/22 documented as of this encounter
--- OUTSIDE RECORDS SUMMARY | 2023-03-19 00:06 | XMS_ITS | Encounter Summary ---
Author Name Unknown Organization [place] Address [address] [facility] [place] [address] Care Team Providers Care Nut Tapper Name Role Phone Vamshi Hewitt MD Primary Care Provider + [phone] Matteo Del Angel MD Unavailable [phone] Silvia Montiel MD Unavailable [phone] Reason for Visit * Reason Onset Date Comments Results 03/20/2021 lab work Encounter Details Date Type Department Care Team (Late st Contact Info) Description 03/20/2021 Telephone [facility] Urology Clinic [address] [place] [address] Matteo Del Angel MD [address] [place], [place] [id number] Results (lab work) Social History Tobacco Use Types Packs/Day Years [...] have Coronavirus / COVID-19? No / Unsure 03/20/2021 10:27 AM PARCEL POST WEIGHER documented as of this encounter Miscellaneous Notes * Telephone Encounter - Robert Hughes - 03/20/2021 4:57 PM CST [facility] Call Center Phone Message May a detailed message be left on voicemail: yes Reason for Call: Requesting Results Name/type of test: Lab results Date of test: 03/20/21 Was test done at a location other than [facility] (Please fill in the location if not [facility])?: No Action Taken: Message routed to: Other: [facility] Travel Screening: Not Applicable EL POST WEIGHER documented in this encounter Plan of Treatment Not on file documented as of this encounter Visit Diagnoses Not on filedocumented in this encounter Care Teams Nut Tapper Relationship Specialty [place] [address] [place] [id number] PCP - General Family Practice 07/29/12 Matteo Del Angel MD [address] [place] [address] Assigned Surgical Provider 02/26/21 Silvia Montiel MD [facility] [address] [facility] [address] [place], [place] [id number] Assigned Surgical Provider 11/03/22 documented as of this encounter
--- OUTSIDE RECORDS SUMMARY | 2023-03-19 00:07 | XMS_ITS | Encounter Summary ---
Author Name Unknown Organization [place] Address [address] [facility] [place] [address] Care Team Providers Care Hotel Night Auditor Name Role Phone Vamshi Hewitt MD Primary Care Provider + [phone] Angela Morales MA Unavailable [phone] Isi Heredia FIRE CONTROL SYSTEM INSTALLER Unavailable [phone] Matteo Del Angel MD Unavailable [phone] Silvia Montiel MD Unavailable [phone] Encounter Details Date Type Department Care Team (Late st Contact Info) Description 12/21/2004 Office Visit-[facility] [address] [place] [address] Unknown, MD Migel Social History Tobacco Use Types Packs/Day Years Used Date Smoking Tobacco: Never Assessed Sex and Gender Information Value Date Recorded Sex Assigned at Not on file Gender Identity Not on file Sexual Orientation Not on file documented as of this encounter Progress Notes * Unknown, MD Migel - 12/22/2004 3:05 PM CST Progress Note Created by: Oneil Connor M.D. DATE: 12/21/2004 LATRICE COVARRUBIAS DATE OF : 1950 AGE: [age] years old Referring Physician: NORA SHAIKH Referring Clinic: [facility] CURRENT DIAGNOSES 1. - Chest Pain-unspecified, 786.50 2. Hypertension-Essential (Malignant), 401.0 3. - Abnormal EKG, 794.31 4. SOB, 786.05 5. - Hypertriglyceridemia, 272.4 6. CAD, 414.00 ALLERGIES Penicillins, Hives MEDICATIONS (including any changes made today) 1. Lisinopril HCT 10/12.5 mg, 1 p.o. q.d. 2. Tricor, Take as Directed 3. Toprol XL 50 mg, 1 p.o. q.d. 4. Aspir-Low 81 mg, 1 p.o. q.d. 5. Zoloft 25 mg, 1 p.o. q.d. CHIEF COMPLAINTS F/u HISTORY OF PRESENT ILLNESS I had the opportunity to see Mr. Latrice Covarrubias in cardiology clinic today for reevaluation of chestpain and coronary artery disease. I will refer you to my previous note of 11/30/2004 for the details of his medical history. Because Mr. Covarrubias had an abnormal stress test suggesting myocardial ischemia and was having ongoing chest pain symptoms, I referred him for a cardiac catheterization which was performed at [facility] on 11/30/2004. This study demonstrated significant coronary artery disease with a mid-LAD stenosis of 60- 70%. There is a long area of narrowing at that point and this was evaluated by flow wire and demonstrated a fractional flow reserve of 0.78. He had only mild disease in his right coronary artery and circumflex and normal left ventricular function. I discussed this with Dr. Miller and it was not clear that this was a severe coronary lesion or the cause of his chest pain symptoms. He was also dealing with gallbladder abnormality and needed to havegallbladder surgery. I was concerned that his gallbladder may have actually been the cause of his chest pain symptoms. He has now undergone gallbladder surgery 10 days ago and continues to have central chest tightness which is quite concerning to him. It occurs both at rest and with exertion. It isassociated with some shortness of breath. He does not feel that his gallbladder surgery has significantly impacted that chest discomfort symptom although he is having much less discomfort in his right upper quadrant and epigastrium. He described that as a burning pain which seems to be improved. His risk factors include hypertension and dyslipidemia. These are both being well managed through your clinic. He is a nonsmoker, non-diabetic and does have a family history of coronary disease. On examination today, his blood pressure is excellent at 112/76. His heart rate is 80 and weight 182 pounds. Otherwise, his examination is normal. 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 EYES wears eye glasses/contact lenses EARS, NOSE, THROAT, MOUTH denies any hearing loss, epistaxis, hoarseness or difficulty speaking. RESPIRATORY dyspnea with exertion CARDIOVASCULAR palpitations at rest, some ABDOMINAL denies ulcer disease, hematochezia or melena. MUSCULOSKELETAL history of rheumatoid arthritis NEUROLOGICAL denies any history of recurrent strokes, headaches, TIA, or seizure disorder. PSYCHIATRIC depression ENDOCRINE hyperlipidemia HEMATOLOGICAL/IMMUNOLOGIC seasonal allergies PHYSICAL EXAMINATION VITAL SIGNS: Blood Pressure: 112/76 Sitting, Right arm, regular cuff Pulse- 80.00/min. Weight- 182.00 lbs. Height- 70.00 Temperature- .00 CONSTITUTIONAL cooperative, alert and oriented,well developed, well nourished, in no acute distress. SKIN warm and dry to touch, no apparent skin lesions, or masses noted. HEAD normocephalic, atraumatic EYES Pupils equal and round, conjunctivae and lids unremarkable, sclera white, no xanthalasma ENT ears, nose and throat unremarkable, bilat ear lobe creases NECK JVP normal, no carotid bruit, thyroid not enlarged CHEST clear to auscultation CARDIAC no murmurs, gallops or rubs detected ABDOMEN abdomen soft, bowel sounds normoactive, no masses, no hepatosplenomegaly, non- tender, no bruits PERIPHERAL PULSES pulses full and equal in all extremities, no bruits auscultated. EXTREMITIES & BACK no clubbing, cyanosis or edema NEUROLOGICAL no gross motor deficits noted, affect appropriate, oriented to time, person and place. MEDICATIONS UPDATED TODAY: IMPRESSIONS/PLAN Mr. Latrice Covarrubias is a 54-year-old gentleman with chest discomfort and an abnormal stress test. Although this stress test demonstrates myocardial ischemia, it was not clear that his moderately severeLAD stenosis was the culprit lesion. For that reason we suggested he go through gallbladder surgeryas he had planned to see if that would help resolve his symptoms. Unfortunately, he continues to have chest discomfort symptoms which greatly concern him especially in the setting of coronary artery disease. I have suggested that we could allow him more time to attempt medical management for his coronary disease but he is uncomfortable with that plan. He wishes to have revascularization performedand I do not think that is unreasonable. He certainly has a lesion in the LAD which may be significant. I will go ahead and arrange a cardiac catheterization with angioplasty and stent to the LAD. I have discussed the risks and benefits again with him in detail including the possibility of bleeding, renal failure, heart attack, stroke, emergency surgery and . He understands this involves an x- ray and conscious sedation. He wishes to proceed. We will see him again in follow-up after his procedure has been completed and he will continue to follow-up with you for management of his hypertension and dyslipidemia issues. TODAYS ORDERS 1. Left Heart Cath 3 days 2. F/U with Steven [facility]ida 3. Return Visit 1 year 4. Treadmill Nuclear Study 1 year Oneil Connor M.D. documented in this encounter Plan of Treatment Not on file documented as of this encounter Visit Diagnoses Not on filedocumented in this encounter Care Teams Hotel Night Auditor Relationship Specialty [place] [address] [place] [phone] PCP - General Family Practice 07/29/12 Angela Morales MA Community Health Worker 01/19/2004/03 Isi Heredia, [facility] Lead Shelver 01/25/20 1 Matteo Del Angel MD [address] [place] [id number] Assigned Surgical Provider 02/26/21 Silvia Montiel MD [facility] [address] [facility] [address] [place] [address] Assigned Surgical Provider 11/03/22 documented as of this encounter
--- OUTSIDE RECORDS SUMMARY | 2023-03-19 00:07 | XMS_ITS | Encounter Summary ---
Author Name Unknown Organization [place] Address [address] [facility] [place] [address] Care Team Providers Care Health Center Manager Name Role Phone Vamshi Hewitt MD Primary Care Provider + [phone] Angela Morales MA Unavailable [phone] Isi Heredia [facility] Unavailable [phone] Matteo Del Angel MD Unavailable [phone] Silvia Montiel MD Unavailable [phone] Reason for Visit * Reason Onset Date Comments Appointment 01/05/2020 Stroke follow up Encounter Details Date Type Department Care Team (Late st Contact Info) Description 01/05/[address] [facility] Neurosurgery Clinic [address] [address] Saad Ruiz MD [address] [place] [address] Appointment (Stroke follow up) Social History Tobacco Use Types Packs/Day Years Used Date Smoking Tobacco: Never Smokeless Tobacco: Never Alcohol Use Standard Drinks/Week Comments No 0 (1 standard drink = 0.6 oz pur e alcohol) Sex and Gender Information Value Date Recorded Sex Assigned at Not on file Gender Identity Not on file Sexual Orientation Not on file COVID-19 Exposure Response Date Recorded In the last month, have you been in contact with someone who was confirmed or suspected to have Coronavirus / COVID-19? No / Unsure 01/02/2020 7:22 PM CNC ROUTER OPERATOR documented as of this encounter Miscellaneous Notes * Telephone Encounter - Tracey Sandy - 01/05/2020 10:16 AM CST Left vm for pt to return call. Delia Pedroza Please schedule patient for hospital follow up with me or another SKYE in 6-8 weeks Thanks ROUTER OPERATOR documented in this encounter Plan of Treatment Not on file documented as of this encounter Visit Diagnoses Not on filedocumented in this encounter Care Teams Health Center Manager Relationship Specialty [place] [address] [place] [address] PCP - General Family Practice 07/29/12 Angela Morales MA Community Health Worker 01/19/2004/03 Isi Heredia, [facility] Lead Physical Ther 01/25/20 1 Matteo Del Agnel MD [address] [place] [id number] Assigned Surgical Provider 02/26/21 Silvia Montiel MD [facility] [address] [facility] [address] [place] [address] Assigned Surgical Provider 11/03/22 documented as of this encounter
--- OUTSIDE RECORDS SUMMARY | 2023-03-19 00:07 | XMS_ITS | Encounter Summary ---
Author Name Unknown Organization [place] Address [address] [facility] [address] Care Team Providers Care Box Maker Name Role Phone Vamshi Hewitt MD Primary Care Provider + [phone] Matteo Del Angel MD Unavailable [phone] Silvia Montiel MD Unavailable [phone] Reason for Visit * Reason Onset Date Comments Call Back 02/07/2021 Appt questions Encounter Details Date Type Department Care Team (Late st Contact Info) Description 02/07/2021 Telephone [facility] Urology Clinic [address] [place] [address] Matteo Del Angel MD [address] [place] [address] Call Back (Appt questions) Social History Tobacco Use Types Packs/Day Years [...] COVID-19? No / Unsure 02/07/2021 3:08 PM TIRE AND LUBE TECHNICIAN documented as of this encounter Miscellaneous Notes * Telephone Encounter - Janette Caballero LPN - 02/07/2021 3:04 PM CST Images from the original note were not included. Judi Gomez RN You; [facility] Med Onc Support Pool 4 minutes ago (2:59 PM) NURIA Birmingham RN took care of this and called patient back. Judi Rincon AND LUBE TECHNICIAN * Telephone Encounter - Meliza Escalante - 02/07/2021 1:18 PM CST [facility] Phone Message May a detailed message be left on voicemail: yes Reason for Call: Other: Pt would like a call back as they keep recieving calls to pt and she is frustrated as he doesn't know whats going on and she has apt quesitons. Please reach out marty as he has an appt at 330 today Action Taken: Message routed to: [facility] Travel Screening: Not Applicable AND LUBE TECHNICIAN documented in this encounter Plan of Treatment Not on file documented as of this encounter Visit Diagnoses Not on filedocumented in this encounter Care Teams Box Maker Relationship Specialty [place] [address] [facility] [place] [phone] PCP - General Family Practice 07/29/12 Matteo Del Angel MD [address] [place] [address] Assigned Surgical Provider 02/26/21 Silvia Montiel MD [facility] [address] [facility] [address] [place], [place] [phone] Assigned Surgical Provider 11/03/22 documented as of this encounter
--- OUTSIDE RECORDS SUMMARY | 2023-03-19 00:07 | XMS_ITS | Encounter Summary ---
Author Name Unknown Organization [place] Address [address] [facility] [place] [address] Care Team Providers Care Tray Line Supervisor Name Role Phone Vamshi Hewitt MD Primary Care Provider + [phone] Angela Morales MA Unavailable [phone] Isi Heredia GRINDER BRAKE LINING Unavailable [phone] Matteo Del Angel MD Unavailable [phone] Silvia Montiel MD Unavailable [phone] Encounter Details Date Type Department Care Team (Late st Contact Info) Description 06/08/2005 Office Visit-[facility] Heart Clinic [address] [place] [address] Unknown, MD Migel Social History Tobacco Use Types Packs/Day Years Used Date Smoking Tobacco: Never Assessed Sex and Gender Information Value Date Recorded Sex Assigned at Not on file Gender Identity Not on file Sexual Orientation Not on file documented as of this encounter Progress Notes * Unknown, MD Migel - 06/14/2005 12:17 PM CDT Progress Note Created by: Maggi Barroso RN, ULTIMATE HOOPS REFEREE DATE: 06/08/2005 [id number] LATRICE COVARRUBIAS DATE OF : 1950 AGE: [age] years old Referring Physician: NORA VALENTINE Referring Clinic: [facility] CURRENT DIAGNOSES 1. - Chest Pain-unspecified, 786.50 2. IA-S/P Unspecified, 412 3. CAD, 414.00 4. Hypertension-Essential (Malignant), 401.0 5. - Abnormal EKG, 794.31 6. SOB, 786.05 7. - Hypertriglyceridemia, 272.4 ALLERGIES Penicillins, Hives MEDICATIONS (including any changes made today) 1. Tricor 145 mg, 1 p.o. q.d. 2. Lisinopril/ HCT 20/12.5, 1 p.o. q.d. 3. Plavix 75 mg, 1 p.o. q.d. 4. Toprol XL 50 mg, 1 p.o. q.d. CHIEF COMPLAINTS CAD and F/u HISTORY OF PRESENT ILLNESS Mr. Covarrubias returns to [facility]. He has a history of coronary artery disease, with a coronary angiography done in November of 2004. After having persistent chest pain, a percutaneous transluminal coronary angioplasty was done in December of 2004 and a stent was placed to the left anterior descending. Then, in January of 2005, he had a cholecystectomy, as he was continuing to have some chest discomfort. He tells me today that he has not had chest discomfort since having these procedures. He is not sure exactly when his chest discomfort resolved, whether it was after the stent placement or after the cholecystectomy. In addition to the mid left anterior descending lesion that was stented, there was also a 30 narrowing of the circumflex and there was 25% narrowing of mild diffuse disease in the right coronary artery. His ejection fraction was 55 to 60%. He tells me he ran out of his Plavix about three months ago. He took the first month of medication that he received at discharge, then obtained one refill from his primary care clinic. This is his first follow-up visit since his stent placement. He was surprised to hear from me today that he has coronary artery disease. He tells me that he knows he had a stent placed but did not know what was involved. He has a history of high triglycerides and hypertension. These are both managed by his primary care provider. He does not know what his cholesterol level was or the last time it was checked. He is not taking a statin right now but is taking Tricor for his triglycerides. PAST HISTORY Past Medical Illnesses: rheumatoid arthritis of wrists and hands, anxiety, depression, hypertension, hypertriglyceridemia Past Cardiac Illnesses: chest pain, coronary artery disease Cardiology Procedures-Invasive: cardiac cath (left) November 2004, cardiac cath (left) December 2004 Cardiac Cath Results: successful MELONY to mid LAD lesion Left Ventricular Ejection Fraction: 55-60% by angiogram 11/22 Nuclear Results: Oct 2004 FAMILY HISTORY: Father - Age 81, 2 bi-passes and [place]; Mother - age 76, complication with lungs; CARDIAC RISK FACTORS Tobacco Abuse: negative; Family History of Heart Disease: positive; Hyperlipidemia: positive; Hypertension: positive; Diabetes Mellitus: negative; Prior History of Heart Disease: negative; Obesity:negative; Sedentary Life Style:negative; Age:negative SOCIAL HISTORY Alcohol Use - does not use alcohol; Smoking - does not smoke; Diet - regular diet without modifications and caffeine use-none; Lifestyle - and children; Exercise - no regular exercise; Seat Belt Use - always; 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 EYES wears eye glasses/contact lenses EARS, NOSE, THROAT, MOUTH denies any hearing loss, epistaxis, hoarseness or difficulty speaking. RESPIRATORY dyspnea with exertion CARDIOVASCULAR negative for palpitations, chest pain, orthopnea, PND, peripheral edema, syncope or claudication. ABDOMINAL denies ulcer disease, hematochezia or melena. MUSCULOSKELETAL history of rheumatoid arthritis NEUROLOGICAL denies any history of recurrent strokes, headaches, TIA, or seizure disorder. PSYCHIATRIC depression ENDOCRINE hyperlipidemia HEMATOLOGICAL/IMMUNOLOGIC seasonal allergies PHYSICAL EXAMINATION VITAL SIGNS: Blood Pressure: 140/82 Sitting, Left arm, regular cuff Pulse- 88.00/min. Weight- 192.20 lbs. Height- 70.00 Temperature- .00 CONSTITUTIONAL cooperative, [...] no murmurs, gallops or rubs detected ABDOMEN <FONT COLOR=#[id number]><FONT POINT=10>abdomen soft, bowel sounds normoactive, no masses, no hepatosplenomegaly, non-tender, no bruits PERIPHERAL PULSES pulses full and equal in all extremities, no bruits auscultated. EXTREMITIES & BACK no clubbing, cyanosis or edema NEUROLOGICAL no gross motor deficits noted, affect appropriate, oriented to time, person and place. MEDICATIONS UPDATED TODAY: Tricor 145 mg, 1 p.o. q.d., 0 Lisinopril/ HCT 20/12.5, 1 p.o. q.d., 0 Plavix 75 mg, 1 p.o. q.d., #90 IMPRESSIONS/PLAN <FONT COLOR=#[id number]><FONT POINT=10> Coronary artery disease. I encouraged him to make appropriate lifestyle modifications, including regular exercise and dietary changes, to include alow-fat diet. He would like to followup with is primary care physician regarding his cholesterol. Iencouraged him that he should be treating any elevated cholesterol levels aggressively, even if they were not elevated by primary prevention guidelines. I gave him another prescription for Plavix to last 90 days. I have encouraged him to call the clinic with any questions or concerns that he may have prior to his next visit. <FONT COLOR=#[id number]><FONT POINT=10> TODAYS ORDERS 1. Obtain Lipids Results from PMD 2. Return Visit [address] Nikolas Barroso RN, ULTIMATE HOOPS REFEREE <FONT COLOR=#[id number]><FONT POINT=10>cc: Dr. Nora Valentine<FONT COLOR=#[id number]><FONT POINT=10> documented in this encounter Plan of Treatment Not on file documented as of this encounter Visit Diagnoses Not on filedocumented in this encounter Care Teams Tray Line Supervisor Relationship Specialty [place] [address] [place] [phone] PCP - General Family Practice 07/29/12 Angela Morales MA Community Health Worker 01/19/2004/03 Isi Heredia GRINDER BRAKE LINING Lead Razor Grinder 01/25/20 1 Matteo Del Angel MD [address] [place] [id number] Assigned Surgical Provider 02/26/21 Silvia Montiel MD [facility] [address] [place], [place] [address] Assigned Surgical Provider 11/03/22 documented as of this encounter
--- OUTSIDE RECORDS SUMMARY | 2023-03-19 00:07 | XMS_ITS | Encounter Summary ---
Author Name Unknown Organization [place] Address [address] [facility] [place] [address] Care Team Providers Care Sign Builder Name Role Phone Vamshi Hewitt MD Primary Care Provider + [phone] Angela Morales MA Unavailable [phone] Isi Heredia APPROVER Unavailable [phone] Matteo Del Angel MD Unavailable [phone] Silvia Montiel MD Unavailable [phone] Encounter Details Date Type Department Care Team (Late st Contact Info) Description 07/25/2006 Office Visit-[facility] [address] [place] [address] Eugenio Neri MD Social History Tobacco Use Types Packs/Day Years Used Date Smoking Tobacco: Never Assessed Sex and Gender Information Value Date Recorded Sex Assigned at Not on file Gender Identity Not on file Sexual Orientation Not on file documented as of this encounter Progress Notes * Eugenio Neri MD - 07/25/2006 3:42 PM CDT Progress Note Created by: Eugenio Neri M.D. DATE: 07/25/2006 LATRICE COVARRUBIAS DATE OF : 1950 AGE: [age] years old Referring Physician: NALLELY MARSHALL Referring Clinic: [facility] CURRENT DIAGNOSES 1. - Chest Pain-unspecified, 786.50 2. [place]-S/P Unspecified, 412 3. CAD, 414.00 4. Hypertension-Essential (Malignant), 401.0 5. - Abnormal EKG, 794.31 6. SOB, 786.05 7. - Hypertriglyceridemia, 272.4 ALLERGIES Penicillins, Hives MEDICATIONS (including any changes made today) 1. Tricor 145 mg, 1 p.o. q.d. 2. Lisinopril/ HCT 20/12.5, 1 p.o. q.d. 3. Plavix 75 mg, 1 p.o. q.d. 4. Toprol XL 50 mg, 1 p.o. q.d. CHIEF COMPLAINTS F/u HISTORY OF PRESENT ILLNESS PAST HISTORY Past Medical Illnesses: rheumatoid arthritis of wrists and hands, anxiety, depression, hypertension, hypertriglyceridemia Past Cardiac Illnesses: chest pain, coronary artery disease, s/p [place] Cardiology Procedures-Invasive: cardiac cath (left) November 2004, cardiac cath (left) December 2004 Cardiology Procedures-Noninvasive: myocardial perfusion imaging (Nuclear) June 2005 Cardiac Cath Results: successful MELONY to mid LAD lesion Left Ventricular Ejection Fraction: 55-60% by angiogram 11/22, EF50% by nuclear study, 06/23 Nuclear Results: Oct 2004 FAMILY HISTORY: Father - Age 81, 2 bi-passes and [place]; Mother - age 76, complication with lungs; SOCIAL HISTORY Alcohol Use - does not use alcohol; Smoking - does not smoke; Diet - regular diet without modifications and caffeine use-none; Lifestyle - and children; Exercise - no regular exercise; Seat Belt Use - always; 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 EYES wears eye glasses/contact lenses, blurred vision EARS, NOSE, THROAT, MOUTH denies any hearing loss, epistaxis, hoarseness or difficulty speaking. RESPIRATORY dyspnea, cough CARDIOVASCULAR chest pain ABDOMINAL diarrhea (semiformed) MUSCULOSKELETAL history of rheumatoid arthritis NEUROLOGICAL headaches PSYCHIATRIC anxiety, stress, depression, sleep disturbance ENDOCRINE hyperlipidemia, polyuria HEMATOLOGICAL/IMMUNOLOGIC seasonal allergies PHYSICAL EXAMINATION VITAL SIGNS: Blood Pressure: 110/80 Sitting, Left arm, regular cuff Pulse- 64.00/min. Weight- 188.00 lbs. Height- 70.00 Temperature- .00 CONSTITUTIONAL cooperative, [...] person and place. MEDICATIONS UPDATED TODAY: IMPRESSIONS/PLAN (Enter Doctor Dictated Impressions Here) Eugenio Neri M.D. documented in this encounter Plan of Treatment Not on file documented as of this encounter Visit Diagnoses Not on filedocumented in this encounter Care Teams Sign Builder Relationship Specialty [place] [address] [place] [address] PCP - General Family Practice 07/29/12 Angela Morales MA Community Health Worker 01/19/2004/03 Isi Heredia, [facility] Lead Supervisor Filtration 01/25/20 1 Matteo Del Angel MD [address] [place] [address] [id number] Assigned Surgical Provider 02/26/21 Silvia Montiel MD [facility] [address] [facility] [address] [place], [place] [id number] Assigned Surgical Provider 11/03/22 documented as of this encounter
--- OUTSIDE RECORDS SUMMARY | 2023-03-19 00:07 | XMS_ITS | Encounter Summary ---
Author Name Unknown Organization [place] Address [facility] [place] [address] Care Team Providers Care Dairy Tester Name Role Phone Vamshi Hewitt MD Primary Care Provider + [phone] Matteo Del Angel MD Unavailable [phone] Silvia Montiel MD Unavailable [phone] Reason for Visit * Reason Onset Date Comments Call Back 02/07/2021 Consult appt tod ay 3:30 Encounter Details Date Type Department Care Team (Late st Contact Info) Description 02/07/2021 Telephone [place] [id number] [facility], [address] [address] Matteo Del Angel MD [address] [place] [address] Call Back (Consult appt today 3:30) Social History Tobacco Use Types Packs/Day Years [...] COVID-19? 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 I do see information was provided to Rivera about this appt but Tricia has further questions. . Please call Tricia to discuss. Action Taken: Message routed to: Other: Urology Travel Screening: Not Applicable EDGE MACHINE OPERATOR documented in this encounter Plan of Treatment Not on file documented as of this encounter Visit Diagnoses Not on filedocumented in this encounter Care Teams Dairy Tester Relationship Specialty [place] [address] [place] [address] PCP - General Family Practice 07/29/12 Matteo Del Angel MD [address] [place] [address] Assigned Surgical Provider 02/26/21 Silvia Montiel MD [facility] [address] [facility] [address] [place] [address] Assigned Surgical Provider 11/03/22 documented as of this encounter
--- OUTSIDE RECORDS SUMMARY | 2023-03-19 00:07 | XMS_ITS | Encounter Summary ---
Author Name Unknown Organization [place] Address [address] [facility] [place] [address] Care Team Providers Care Boom Supervisor Name Role Phone Vamshi Hewitt MD Primary Care Provider + [phone] Angela Morales MA Unavailable [phone] Isi Heredia SHOPFITTER Unavailable [phone] Matteo Del Angel MD Unavailable [phone] Silvia Montiel MD Unavailable [phone] Encounter Details Date Type Department Care Team (Late st Contact Info) Description 07/25/2006 Office Visit-[facility] [address] [place] [address] Eugenio Neri MD Social History Tobacco Use Types Packs/Day Years Used Date Smoking Tobacco: Never Assessed Sex and Gender Information Value Date Recorded Sex Assigned at Not on file Gender Identity Not on file Sexual Orientation Not on file documented as of this encounter Progress Notes * Eugenio Neri MD - 07/29/2006 12:03 PM CDT Progress Note Created by: Eugenio Neri M.D. DATE: 07/25/2006 LATRICE COVARRUBIAS DATE OF : 1950 AGE: [age] years old Referring Physician: NALLELY MARSHALL Referring Clinic: [facility] CURRENT DIAGNOSES 1. - Chest Pain-unspecified, 786.50 2. [place]-S/P Unspecified, 412 3. CAD, 414.00 4. Hypertension-Essential [...] COMPLAINTS F/u HISTORY OF PRESENT ILLNESS I am having the pleasure of seeing your patient, Latrice Covarrubias, who in November and December of 2004had a cath and then a drug-eluting stent to the LAD. He has actually done well with that, although he took Plavix somewhat intermittently after the stent. I note that you have him back on Plavix, although it may not be altogether that important to take aspirin and Plavix combination chronically in the absence of severe and extensive or diffuse disease. If Plavix should cause problems I would certainly consider stopping it. I am not quite sure that the indications for it are altogether that strong. He is on Tricor for his lipids, but I do not have any current lipids to look at. In his case being a relatively young man I would like to see his HDL above 40, and his LDL below 70, and his HDL to LDL ratio greater than one half. If it takes putting him on a little bit of statin plus the Tricor, I would certainly do that. I might choose Pravachol as a reasonable now generic drug to lower the LDL if it is above 70. He looks good and he feels good. He is having some intermittent pain in the right upper chest at rest, but not with activity. He does not seem to find the time to exercise but I am going to recommendthat he walk for recreation, not necessarily high speeds, for half an hour with his significant other, strolling and enjoying the day, and report exercise intolerance or discomfort with activity thatgoes away with rest, and at that point we might want to do another angiogram. I would like to do another stress test next year and would like to see him in a year. Since his blockages were quite mild, only about 25-30%, I do not think there is a likelihood that they have progressed, especially withgood cholesterol control, in a year's time, and I think it is reasonable to check a nuclear stress test next year unless he has symptoms that worry us. Our belief is that blockages cannot be fixed but they can be prevented from worsening, and that is our gold standard at this point in time. Someday we may learn how to get rid of plaque but that has not yet occurred. His blood pressure in our office today is 110/80. His heart rate is 64 and he looks and feels pretty good. My suspicion is that he will do well over the next many years, but the fact that he had coronary artery disease at a young age gives him many, many years in which to develop worsening disease,and people like him often at younger ages than most people, at least in past years, and maybe now with very aggressive cholesterol control we can prevent early additional problems for him. PAST HISTORY Past Medical Illnesses: rheumatoid arthritis of wrists and hands, anxiety, depression, hypertension, hypertriglyceridemia Past Cardiac Illnesses: chest pain, coronary artery disease, s/p [place] Cardiology Procedures-Invasive: cardiac cath (left) November 2004, cardiac cath (left) December 2004 Cardiology Procedures-Noninvasive: myocardial perfusion imaging (Nuclear) June 2005 Cardiac Cath Results: successful MELONY to mid LAD lesion Left Ventricular Ejection Fraction: 55-60% by angiogram 11/22, EF50% by nuclear study, 06/23 Nuclear Results: Oct 2004 FAMILY HISTORY: Father - Age 81, 2 bi-passes and [place]; Mother - age 76, complication with lungs; SOCIAL HISTORY Alcohol Use - does not use alcohol; Smoking - does not smoke; Diet - regular diet without modifications and caffeine use-none; Lifestyle - and children; Exercise - no regular exercise; Seat Belt Use - always; 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 MEDICATIONS UPDATED TODAY: IMPRESSIONS/PLAN I am going to emphasize to him that he needs to control his blood pressure, that he needs to be active a half an hour a day walking, that he needs to make sure his lipids and his cholesterol are superbly controlled. Please call if there are any questions, concerns, or recommendations. I very much appreciate watching this very nice gentleman with you. After I dictated he tells me he is on simvastatin, and one morning he had vertigo. Eugenio Neri M.D. documented in this encounter Plan of Treatment Not on file documented as of this encounter Visit Diagnoses Not on filedocumented in this encounter Care Teams Boom Supervisor Relationship Specialty [place] [address] [place] [phone] PCP - General Family Practice 07/29/12 Angela Morales MA Community Health Worker 01/19/2004/03 Isi Heredia [facility] Lead Television Presenter 01/25/20 1 Matteo Del Angel MD [address] [place] [address] [id number] Assigned Surgical Provider 02/26/21 Silvia Montiel MD [facility] [address] [place] [address] Assigned Surgical Provider 11/03/22 documented as of this encounter
--- OUTSIDE RECORDS SUMMARY | 2023-03-19 00:07 | XMS_ITS | Encounter Summary ---
Author Name Unknown Organization [place] Address [address] [facility] [place] [address] Care Team Providers Care Carpenter Mold Name Role Phone Vamshi Hewitt MD Primary Care Provider + [phone] Angela Morales MA Unavailable [phone] Isi Heredia MULTIMEDIA MANAGER Unavailable [phone] Matteo Del Angel MD Unavailable [phone] Silvia Montiel MD Unavailable [phone] Encounter Details Date Type Department Care Team (Late st Contact Info) Description 09/05/2007 Office Visit-[facility] [address] [place] [address] Eugenio Neri MD Social History Tobacco Use Types Packs/Day Years Used Date Smoking Tobacco: Never Assessed Sex and Gender Information Value Date Recorded Sex Assigned at Not on file Gender Identity Not on file Sexual Orientation Not on file documented as of this encounter Progress Notes * Eugenio Neri MD - 09/08/2007 4:49 PM CDT Progress Note Created by: Eugenio Neri M.D. [id number] DATE: 09/05/2007 LATRICE COVARRUBIAS DATE OF : 1950 AGE: [age] years old Referring Physician: VAMSHI HEWITT Referring Clinic: [facility] CURRENT DIAGNOSES 1. CAD, 414.00 2. - Chest Pain-unspecified, 786.50 3. Hypertension-Essential (Malignant), 401.0 4. - Hypertriglyceridemia, 272.4 5. [place]-S/P Unspecified, 412 ALLERGIES Penicillins, Hives MEDICATIONS (prior to changes made today) 1. Gemfibrozil 600 mg, 1 p.o. b.i.d. when he remembers 2. Toprol XL 100 mg, 1 p.o. q.d. 3. Lisinopril/ Hct 20/12.5, 1 p.o. b.i.d. 4. Aspirin 81 mg, 1 p.o. q.d. CHIEF COMPLAINTS HISTORY OF PRESENT ILLNESS I am visiting Latrice Covarrubias today in the office. He had a drug-eluting stent placed in December of 2004 and has premature heart disease based on family history, hypertension and dyslipidemia. Currentrecommendations for premature heart disease include HDL above 40, LDL below 70 and triglycerides less than 100 or perhaps 150. He currently is on Lopid 600 twice per day, but tells me he still has hyperlipidemia. We talked about the things that could further lower triglycerides including weight loss and exercise, polyunsaturated fatty acids, such as fish oil, red grapefruit and niacin. I have given him some articles on the Mediterranean diet, on the effect of caffeine and the effect of dark chocolate and would like him to be aware of his lipids and would be very happy to work with him to normalize these such that he will have less likelihood of heart attack and stroke in his lifetime. He looks good and feels good. I do not think there is any urgency about achieving these goals, but my own bias is that he needs to apply himself to achieve these goals. Along these lines he and I will visit again in approximately four months to review his lipids. PAST HISTORY Past Medical Illnesses: rheumatoid arthritis of wrists and hands, anxiety, depression, hypertension, hypertriglyceridemia Past Cardiac Illnesses: chest pain, coronary artery disease, s/p [place] Cardiology Procedures-Invasive: cardiac cath (left) November 2004, cardiac cath (left) December 2004 Cardiology Procedures-Noninvasive: myocardial perfusion imaging (Nuclear) June 2005, myocardial perfusion (Nuc) August 2007 Cardiac Cath Results: successful MELONY to mid LAD lesion Left Ventricular Ejection Fraction: 55-60% by angiogram 11/22, EF50% by nuclear study, 06/23, 63-65% per nuc Nuclear Results: Oct 2004, = no ischemia FAMILY HISTORY: Father - Age 81, 2 bi-passes and [place]; Mother - age 76, complication with lungs; SOCIAL HISTORY Alcohol Use - does not use alcohol; Smoking - does not smoke; Diet - regular diet without modifications and caffeine use-none; Lifestyle - and children; Exercise - no regular exercise; Seat Belt Use - always; 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 INTEGUMENTARY denies any change in hair or nails, rashes, or skin lesions. EYES denies diplopia, history of glaucoma or visual field defects. EARS, NOSE, THROAT, MOUTH denies any hearing loss, epistaxis, hoarseness or difficulty speaking. RESPIRATORY cough, dyspnea, a little CARDIOVASCULAR chest discomfort, due to coughing ABDOMINAL denies ulcer disease, hematochezia or melena. MUSCULOSKELETAL history of generalized arthritis NEUROLOGICAL denies any history of recurrent strokes, headaches, TIA, or seizure disorder., denies any history of recurrent headaches, strokes, TIA, or seizure disorder. PSYCHIATRIC depression ENDOCRINE denies any history of thyroid disease or diabetes mellitus. HEMATOLOGICAL/IMMUNOLOGIC denies any food allergies, seasonal allergies, bleeding disorders. PHYSICAL EXAMINATION VITAL SIGNS: Blood Pressure: 130/88 Sitting, Left arm, large cuff Pulse- 60.00/min. Weight- 195.00 lbs. Height- 70.00 Temperature- .00 CONSTITUTIONAL cooperative, [...] oriented to time, person and place. MEDICATIONS UPDATED/STARTED TODAY: Gemfibrozil 600 mg, 1 p.o. b.i.d. when he remembers, 3 month supply MEDICATIONS REFILLED/STOPPED TODAY: Lopid 600 mg 1 p.o. b.i.d. #100 Physician Order IMPRESSION/PLAN: 1. Premature heart disease. 2. Family history, hypertension and lipids as risks, but not diabetes or cigarettes. 3. Need to at least outline the goals and the potential ways of getting there and will plan to do that in about four month's time. Please let me know if you have questions, concerns or comments. TODAYS ORDERS 1. Return Visit 4 months Eugenio Neri M.D. documented in this encounter Plan of Treatment Not on file documented as of this encounter Visit Diagnoses Not on filedocumented in this encounter Care Teams Carpenter Mold Relationship Specialty [place] [address] [place] [address] PCP - General Family Practice 07/29/12 Angela Morales MA Community Health Worker 01/19/2004/03 Isi Heredia, [facility] Lead Artificial Inseminator 01/25/20 1 Matteo Del Angel MD [address] [place], [place] [address] Assigned Surgical Provider 02/26/21 Silvia Montiel MD [facility] [address] [facility] [address] [place] [address] Assigned Surgical Provider 11/03/22 documented as of this encounter
--- OUTSIDE RECORDS SUMMARY | 2023-03-19 00:07 | XMS_ITS | Encounter Summary ---
Author Name Unknown Organization [facility] Address [address] [facility] [place] [address] Care Team Providers Care Bag Loader Machine Operator Name Role Phone Vamshi Hewitt MD Primary Care Provider + [phone] Angela Morales MA Unavailable [phone] Isi Heredia PRECISION AGRICULTURE SPECIALIST Unavailable [phone] Matteo Del Angel MD Unavailable [phone] Silvia Montiel MD Unavailable [phone] Encounter Details Date Type Department Care Team (Late st Contact Info) Description 07/11/2005 Office Visit-[facility] [address] [place] [address] Unknown, MD Migel Social History Tobacco Use Types Packs/Day Years Used Date Smoking Tobacco: Never Assessed Sex and Gender Information Value Date Recorded Sex Assigned at Not on file Gender Identity Not on file Sexual Orientation Not on file documented as of this encounter Progress Notes * Unknown, MD Migel - 07/11/2005 3:31 PM CDT Progress Note Created by: Maggi Barroso RN, CORPORATE PLANNER DATE: 07/11/2005 [id number] LATRICE COVARRUBIAS DATE OF : 1950 AGE: [age] years old Referring Physician: NORA SHAIKH Referring Clinic: [facility] CURRENT DIAGNOSES 1. - Chest Pain-unspecified, 786.50 2. ID-S/P Unspecified, 412 3. CAD, 414.00 4. Hypertension-Essential (Malignant), 401.0 5. - Abnormal EKG, 794.31 6. SOB, 786.05 7. - Hypertriglyceridemia, 272.4 ALLERGIES Penicillins, Hives MEDICATIONS (including any changes made today) 1. Tricor 145 mg, 1 p.o. q.d. 2. Lisinopril/ HCT 20/12.5, 1 p.o. q.d. 3. Plavix 75 mg, 1 p.o. q.d. 4. Toprol XL 50 mg, 1 p.o. q.d. CHIEF COMPLAINTS chest pains HISTORY OF PRESENT ILLNESS This pleasant 54-year-old gentleman returns to [facility] with concerns for chest pain on and off for the last two days. He has a history of coronary artery disease. He was seen with concern for chest pain in November of 2004. He underwent coronary angiography which revealed a significant coronary artery disease with a mid-LAD stenosis of 60 to 70%. He had only mild disease in his right coronary artery and circumflex and had normal left ventricular function. Because the patient had also been having a gallbladder abnormality at the time and it was not clear that the LAD lesion was the cause of his chest pain and it was not stented at that time. The patient continued to have chest p ain and because of his concern for his coronary artery disease, he underwent coronary angiography again in December of 2004. The lesion was stented at that time with a 2.5 x 20 mm Taxus drug-eluting stent. There was a 0% residual stenosis. At the time of the stent placement, there was also a moderately large septal system originating from the area of the LAD lesion which had an 80 to 90% septal lesion. Medical therapy was recommended for that lesion, although if he would have persistent ischemia, that lesion also could be considered for percutaneous dilation. The patient's chest pain did resolve with the placement of that stent. He was started on Plavix at the time of the placement. Unfortun ately, he did not keep his follow-up appointments at the clinic and ran out of his Plavix and was without it for approximately three months. He saw me one month ago in the clinic and I refilled his medications at that time. He tells me today that I am not very good about taking pills and that he has not taken his heart medications, including his Plavix, in about a week. He presents to the clinic today with right sided thoracic pain. He had it yesterday afternoon and it worsened throughout the day and it was quite bothersome by the time he went to bed at night. Because of the pain, he had stopped at his clinic on the way home from work and had his blood pressure jose cked. It was 168/98. When he woke up this morning, he was still aware of the discomfort, however, it was much improved. He has noticed it just marginally during the way and as he arrives in the clinic today, he tells me that he is having chest discomfort of a 1 to 2 on a scale of 0 to 10. He describes the pain as sharp and aching. It is not worsened by taking a deep breath. It is not reproducible with palpation or range of motion. He tells me that he has not had any nausea, diaphoresis or dizziness associated with the chest pain. It is mostly present over the right side of the anterior thorax. It does not radiate to his shoulder, back or jaw. 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 Weight- 191.00 lbs. Height- 70.00 Temperature- .00 CONSTITUTIONAL cooperative, [...] person and place. MEDICATIONS UPDATED TODAY: IMPRESSIONS/PLAN Chest pain, atypical. I recommended that he have a stress test to be done tomorrow morning. I did also give him the option of being evaluated in the Emergency Department and he would like to go that route. He does, at this time, have a stress test scheduled for tomorrow at 12:15 at [facility] should he be discharged prior to that period. If he is admitted, it could be canceled. I took him over to the [facility] Emergency Department by wheelchair where he was admitted. TODAYS ORDERS 1. Treadmill Nuclear Study 1 Day Maggi Barroso RN, CORPORATE PLANNER documented in this encounter Plan of Treatment Not on file documented as of this encounter Visit Diagnoses Not on filedocumented in this encounter Care Teams Bag Loader Machine Operator Relationship Specialty [place] [address] [place] [address] PCP - General Family Practice 07/29/12 Angela Morales MA Community Health Worker 01/19/2004/03 Isi Heredia LSW Lead Tax Advisor 01/25/20 1 Matteo Del Angel MD [address] [place] [address] Assigned Surgical Provider 02/26/21 Silvia Montiel MD [facility] [address] [facility] [address] [place], [place] [address] Assigned Surgical Provider 11/03/22 documented as of this encounter
--- OUTSIDE RECORDS SUMMARY | 2023-03-19 00:08 | XMS_ITS | Encounter Summary ---
Author Name Unknown Organization [facility] Address [address] [place] [address] Care Team Providers Care Animal Care Technician Name Role Phone Clinician, Not Found MD Primary Care Provider Un available Encounter Details Date Type Department Care Team Description 01/16/2022 Notes/Orders [facility] [place] [address] [place], [place] [id number] [place] [address] [place] [address] Social History Tobacco Use Types Packs/Day Years Used Date Smoking Tobacco: Never Alcohol Use Standard Drinks/Week Comments Yes 0 (1 standard drink = 0.6 oz pur e alcohol) Sex and Gender Information Value Date Recorded Sex Assigned at Not on file Gender Identity Not on file Sexual Orientation Not on file documented as of this encounter Progress Notes * Sam Luevano, PT - 01/16/2022 11:59 PM CST [facility] Discharge Summary Rivera Covarrubias has not attended therapy since last documented visit. There are no further visits scheduled at this time and Rivera is currently considered discharged from therapy. Unable to assess current level of function and goals due to unplanned discharge. PT - Discharge Total Visits: 1 Reason for discharge: Patient has not been consistent with attendance and/or failed to schedule appointments as planned. Please see previous visit documentation of status at last treatment. Sam Luevano, PT TATION OPERATOR HELPER GENERATION documented in this encounter Plan of Treatment Not on file documented as of this encounter Visit Diagnoses Not on filedocumented in this encounter Care Teams Animal Care Technician Relationship Specialty Start Date End Date Clinician, Not Found, [place] [address] PCP - General 12/05/21 documented as of this encounter
--- OUTSIDE RECORDS SUMMARY | 2023-03-19 00:08 | XMS_ITS | Encounter Summary ---
Author Name Unknown Organization [facility] Address [address] [facility] [address] Care Team Providers Care Reporting Specialist Name Role Phone Vamshi Hewitt MD Primary Care Provider + [phone] Angela Morales MA Unavailable [phone] Isi Heredia NET MAKER Unavailable [phone] Matteo Del Angel MD Unavailable [phone] Silvia Montiel MD Unavailable [phone] Encounter Details Date Type Department Care Team (Late st Contact Info) Description 11/30/2004 Office Visit-[facility] [address] [place] [address] Unknown, MD Migel Social History Tobacco Use Types Packs/Day Years Used Date Smoking Tobacco: Never Assessed Sex and Gender Information Value Date Recorded Sex Assigned at Not on file Gender Identity Not on file Sexual Orientation Not on file documented as of this encounter Progress Notes * Unknown, MD Migel - 12/04/2004 3:54 PM CDT Progress Note Created by: Oneil Connor M.D. DATE: 11/30/2004 LATRICE COVARRUBIAS DATE OF : 1950 AGE: [age] years old Referring Physician: NORA SHAIKH Referring Clinic: [facility] CURRENT DIAGNOSES 1. - Chest Pain-unspecified, 786.50 2. Hypertension-Essential (Malignant), 401.0 3. - Abnormal EKG, 794.31 4. SOB, 786.05 5. - Hypertriglyceridemia, 272.4 ALLERGIES Penicillins, Hives MEDICATIONS (including any changes made today) 1. Lisinopril HCT 10/12.5 mg, 1 p.o. q.d. 2. Tricor, Take as Directed 3. Aspir-Low 81 mg, 1 p.o. q.d. 4. Zoloft 25 mg, 1 p.o. q.d. CHIEF COMPLAINTS Cp x2 days/ discuss angio HISTORY OF PRESENT ILLNESS [facility] PAST HISTORY Past Medical Illnesses: rheumatoid arthritis of wrists and hands, anxiety, depression, hypertension, hypertriglyceridemia Nuclear Results: Oct 2004 REVIEW OF SYSTEMS GENERAL weight loss, poor appetite INTEGUMENTARY denies any change in hair or nails, rashes, or skin lesions. EYES wears eye glasses/contact lenses EARS, NOSE, THROAT, MOUTH denies any hearing loss, epistaxis, hoarseness or difficulty speaking. RESPIRATORY dyspnea CARDIOVASCULAR chest pain, fatigued ABDOMINAL denies ulcer disease, hematochezia or melena. MUSCULOSKELETAL denies any history of arthritic symptoms or back problems. NEUROLOGICAL denies any history of recurrent strokes, headaches, TIA, or seizure disorder. PSYCHIATRIC depression ENDOCRINE hyperlipidemia HEMATOLOGICAL/IMMUNOLOGIC seasonal allergies PHYSICAL EXAMINATION VITAL SIGNS: Blood Pressure: 138/94 Sitting, Left arm, regular cuff Pulse- 96.00/min. Weight- 184.00 lbs. Height- .00 Temperature- .00 CONSTITUTIONAL cooperative, alert and oriented,well [...] time, person and place. MEDICATIONS UPDATED TODAY: Aspir-Low 81 mg, 1 p.o. q.d., 0 Zoloft 25 mg, 1 p.o. q.d., 0 IMPRESSIONS/PLAN (Enter Doctor Dictated Impressions Here) Oneil Connor M.D. Electronically signed by [facility], [employer] Data Conversion at 07/03/2013 1:22 AM CDT documented in this encounter Plan of Treatment Not on file documented as of this encounter Visit Diagnoses Not on filedocumented in this encounter Care Teams Reporting Specialist Relationship Specialty Start [place] [address] [place] [address] PCP - General Family Practice 07/29/12 Angela Morales MA Community Health Worker 01/19/2004/03 Isi Heredia LSW Lead Technology Program Manager 01/25/20 1 Matteo Del Angel MD [address] [place] [address] Assigned Surgical Provider 02/26/21 Silvia Montiel MD [facility] [address] [facility] [address] [place] [address] Assigned Surgical Provider 11/03/22 documented as of this encounter
--- OUTSIDE RECORDS SUMMARY | 2023-03-19 00:08 | XMS_ITS | Encounter Summary ---
Author Name Unknown Organization [facility] Address [address] [place] [address] Care Team Providers Care Mechanical Ordnance Assembler Name Role Phone Vamshi Hewitt MD Primary Care Provider + [phone] Angela Morales MA Unavailable [phone] Isi Heredia SPLUNK ARCHITECT Unavailable [phone] Matteo Del Angel MD Unavailable [phone] Silvia Montiel MD Unavailable [phone] Encounter Details Date Type Department Care Team (Late st Contact Info) Description 07/26/2003 Office Visit-[facility] [address] [place] [address] Unknown, MD Migel Social History Tobacco Use Types Packs/Day Years Used Date Smoking Tobacco: Never Assessed Sex and Gender Information Value Date Recorded Sex Assigned at Not on file Gender Identity Not on file Sexual Orientation Not on file documented as of this encounter Progress Notes * Unknown, MD Migel - 12/28/2003 3:55 PM CST Progress Note Created by: Dariel Coates M.D. DATE: 07/26/2003 LATRICE COVARRUBIAS DATE OF : 1950 AGE: [age] years old Referring Physician: NORA SHAIKH Referring Clinic: [facility] CURRENT DIAGNOSES 1. - Hypertriglyceridemia, 272.4 2. Hypertension-Essential (Malignant), 401.0 3. - Abnormal EKG, 794.31 4. SOB, 786.05 ALLERGIES Penicillins, Hives MEDICATIONS 1. Lisinopril HCT 10/12.5 mg, 1 p.o. q.d. 2. Prednisone 5 mg, PRN CHIEF COMPLAINTS High bp HISTORY OF PRESENT ILLNESS PAST HISTORY Past Medical Illnesses: rheumatoid arthritis of wrists and hands Dariel Coates M.D. Document electronically signed by : Dariel Coates M.D. Date : 12/28/2003 Time : 3:55:55 PM documented in this encounter Plan of Treatment Not on file documented as of this encounter Visit Diagnoses Not on filedocumented in this encounter Care Teams Mechanical Ordnance Assembler Relationship Specialty Start [place] [address] [place] [address] PCP - General Family Practice 07/29/12 Angela Morales MA Community Health Worker 01/19/2004/03 Isi Heredia LSW Lead Radio Survey Worker 01/25/20 1 Matteo Del Angel MD [address] [place], [place] [address] Assigned Surgical Provider 02/26/21 Silvia Montiel MD [facility] [address] [facility] [address] [place] [address] Assigned Surgical Provider 11/03/22 documented as of this encounter
--- OUTSIDE RECORDS SUMMARY | 2023-03-19 00:08 | XMS_ITS ---
Author Name Unknown Organization [facility] Address [address] [place] [address] Care Team Providers Care Ditching Machine Engineer Name Role Phone Unavailable Unavailable Unavailable Surgery Details Not on file Complications Check Surgery Details section. Procedure Estimated Blood Loss Check Surgery Details section. Procedure Findings Check Surgery Details section. Procedure Specimens Taken Check Surgery Details section.
--- OUTSIDE RECORDS SUMMARY | 2023-03-19 00:08 | XMS_ITS | Clinical Summary ---
Author Name Unknown Organization [facility] Address [address], [place] [address] Care Team Providers Care Front Desk Representative Name Role Phone Clinician, Not Found MD Primary Care Provider Un available Source Comments You are receiving this document as you are listed as the primary care provider,follow-up provider, or the patient has been referred to you for consultation.This is in compliance with the Medicare and[facility] EHR Incentive Program,which states Providers who transition their patient to another setting of careor provider of care or refers their patient to another provider of care shouldprovide summary care record for each transition of care or referral. [facility] Allergies Active Allergy Reactions Criticality Noted Date Comments Penicillins 07/23/2006 PN: LW Reaction: HIVES Medications Medication Sig Dispensed Refills Start Date End Date Status lisinopril (AKA ZESTRIL) 10 MG tablet Take 1 tablet by mouth daily (every 24 hours). LW Addl Instr:Indicated for: High Blood Pressure 90 3 07/23/2006 Active unknown medication Indications: PN: 0 07/23/2006 Active fexofenadine (AKA JEFFERY) 180 MG tablet Take 1 tablet by mouth daily as needed. LW Addl Instr:Indicated for: Allergies 90 3 03/04/2009 Active Methotrexate, Anti-Rheumatic, (AKA RHEUMATREX) 2.5 MG tablet Take 4 tablets by mouth once a week. 20 12 03/04/2009 Active gemfibrozil (AKA LOPID) 600 MG tablet Take 1 tablet by mouth 2 times daily. LW Addl Instr:Take 30 minutes before morning/evening meals. Indicated for: High Triglycerides 180 3 03/04/2009 Active predniSONE (AKA DELTASONE) 5 MG tablet Take 3 tablets by mouth every morning. LW Addl Instr:taper the med by 2.5mg (1.2 tab) every 3-5 days until he is on 5mg daily. Have him stay on 5mg daily for at least 10 days before tapering down and then off. 70 0 06/29/2009 Active folic acid 1 MG tablet Take 1 tablet by mouth daily (every 24 hours). 30 12 03/04/2009 Active Social History Tobacco Use Types Packs/Day Years Used Date Smoking Tobacco: Never Tobacco Cessation:Counseling Given: Not Answered Alcohol Use Standard Drinks/Week Comments Yes 0 (1 standard drink = 0.6 oz pur e alcohol) Sex and Gender Information Value Date Recorded Sex Assigned at Not on file Gender Identity Not on file Sexual Orientation Not on file Plan of Treatment Health Maintenance Due Date Last Done Comments Colon Cancer Screening Plan Due 1950 Hep C Screening (Preventive Services) 1950 Medicare Annual Wellness Visit 1950 COVID-19 Vaccine (#1) 05/16/1951 Cholesterol 11/16/1986 Zoster/Shingles (2 of 3) 02/18/2014 12/24/2013, 10/19 DTaP/Tdap/Td (2 - Tdap) 11/12/2021 11/13/2011 Influenza (#1) 2022 12/01/2021, 07/2019, 02/04/2019, Additional history exists Pneumococcal 65+ Yrs Completed 12/01/2021, 12/24/19 20 HepA Aged Out No longer eligi ble based on patient's age to complete this topic HepB Aged Out No longer eligi ble based on patient's age to complete this topic Hib Aged Out No longer eligi ble based on patient's age to complete this topic IPV (Polio) Aged Out No longer eligi ble based on patient's age to complete this topic MCV4 Aged Out No longer eligi ble based on patient's age to complete this topic Care Teams Front Desk Representative Relationship Specialty Start Date End Date Clinician, Not Found, [place] [address] PCP - General 12/05/21
--- OUTSIDE RECORDS SUMMARY | 2023-03-19 00:08 | XMS_ITS | Referral Summary ---
Author Name Unknown Organization [facility] Address [address] [place] [address] Care Team Providers Care Director For Beauty School Name Role Phone Unavailable Primary Care Provider Unavailabl e Source Comments Patient records contain information from all sites at [facility]. For routine questions regarding patient records, call [phone] during business hours, M-F 8:00 AM - 5:00 PM Central Time. Record requests for emergency care only can be directed to [phone] at any time.[facility] Allergies Active Allergy Reactions Criticality Noted Date Comments Penicillins Other (see comments) 05/28/2012 Medications Medication Sig Dispensed Refills Start Date End Date Status acyclovir (ZOVIRAX) 400 mg tablet Take 5 tablets at the onset of symptoms and repeat it in 12 hours 0 12/15/[address] tablet Take 325 mg by mouth. 0 01/25/2020 Active atorvastatin (LIPITOR) 40 mg tablet Take 40 mg by mouth. 0 01/04/2020 Active ciprofloxacin (CIPRO) 500 mg tablet Take 500 mg by mouth. 0 03/03/2021 Active clopidogreL (PLAVIX) 75 mg tablet Take 75 mg by mouth. 0 01/05/2020 Active indomethacin (INDOCIN) 50 mg capsule Three times daily with food prn orally 0 06/22/2020 Active lisinopriL (PRINIVIL,ZESTRIL) 30 mg tablet Take 30 mg by mouth. 0 12/15/2020 Active lisinopril-hydroCHLOR Othiazide (PRINZIDE,ZESTORETIC) 20-12.5 mg per tablet Take 1 tablet by mouth daily. 0 Active metoprolol succinate (TOPROL-XL) 100 mg 24 hr tablet Take by mouth. 0 04/29/2019 Active oxyCODONE (ROXICODONE) 5 mg immediate release tablet Take 5 mg by mouth. 0 01/19/2021 Activ e sildenafil (REVATIO) 20 mg tablet Take 30 mg by mouth. 0 Active tamsulosin (FLOMAX) 0.4 mg 24 hr capsule Take 2 capsules orally after a meal 0 01/19/2021 Active Active Problems Problem Noted Date Diagnosed Date Primary Malignant Neoplasm Of Prostate 2 Cancer Staging:Clinical stage from 03/03/2021:Stage IIC(cT2c, cN0, cM0, PSA: 10.9, Grade Group: 3) - Unsigned Hyperlipidemia 07/26/2020 Hypertension Essential Primary 07/26/2020 Diverticulitis Of Large Inte cj Without Perforation Or Abscess Without Bleeding 01/28/2020 Infarction Cerebral 01/02/2020 Stroke 01/02/2020 Social History Tobacco Use Types Packs/Day Years Used Date Smoking Tobacco: Never Assessed Nutrition Answer Date Recorded Nutrition: EVOO Fat Source Unknown 04/04 Nutrition: Servings of Fruits/Vegetables per Day Not on file 04/04/2021 Dental Answer Date Recorded Dental: Regular Dentist Unknown 04/04/19 Sex and Gender Information Value Date Recorded Sex Assigned at Not on file Gender Identity Not on file Sexual Orientation Not on file Plan of Treatment Not on file
--- OUTSIDE RECORDS SUMMARY | 2023-03-19 00:08 | XMS_ITS | Continuity of Care Document ---
Author Name Unknown Organization [facility] Address [address] [address] [place] [address] Phone Care Team Providers Care Lead Ramp Service Man Name Role Phone Unavailable Unavailable Unavailable Allergies, Adverse Reactions, Alerts Substance Reaction Status Criticality Penicillins Anaphylactic shock Active No Inform ation Medications Medication Instructions Dosage Effective Dates (start - stop) Status Comments Plavix unknownTABLET Take 1 tablet by mouth daily - Active lisinopril 40 mg Tab Use as directed - Active TRICOR 200MGCAPSULE Take 1 tablet by mouth daily - Active Toprol XL 100 mg 24 hr Tab Use as directed - Active Procedures Procedure Date Colonoscopy Flex; Dx (sep Advance Directives Directive Yes / No Effective Date File Name No Information Encounters Encounter Description Practice Location Reason(s) For Visit Diagnoses Date Provider Providers Copied on Encounter [facility], [address] [address], [place], [place], [id number], [place] tel:[phone] [facility] No Information No Information [facility], [address] [address], [place], [place], [id number], [place] tel:[phone] [facility] Colon Cancer screening No Information Family History Family Member Type Diagnosis Age At Onset No Information Payers Payer name Insurance type Covered democrat ID Authoriza tion(s) No Information Social History Type Description Quantity Date Captured Comments Sex Male Smoking Status No Information Chief Complaint And Reason For Visit No Information Reason For Referral Reason For Referral No Information History Of Present Illness Encounter Date Complaint History Of Prese nt Illness No Information Functional Status Date Functional Assessmen t No Information Instructions Date Instruction Additional Infor mation No Information Assessments Type Assessment Date No Information Patient Care Teams Name Effective Dates (start - stop) Status Members No Information
--- OUTSIDE RECORDS SUMMARY | 2023-03-19 00:08 | XMS_ITS | Encounter Summary ---
Author Name Unknown Organization [place] Address [address] [facility] [place] [address] Care Team Providers Care Imaging Technologist Name Role Phone Vamshi Hewitt MD Primary Care Provider + [phone] Angela Morales MA Unavailable [phone] Isi Heredia SUPERVISOR FERTILIZER Unavailable [phone] Matteo Del Angel MD Unavailable [phone] Silvia Montiel MD Unavailable [phone] Encounter Details Date Type Department Care Team (Late st Contact Info) Description 11/11/[address], [address] [place] [address] Oskar Mcgowan MD [address] [place] [id number] [facility] CARDIOLOGY CONSULTATION REPORT (Primary Dx) Social History Tobacco Use Types [...] as of this encounter Progress Notes * Sonam Sarmiento - 12/26/2004 10:03 AM CST 00:00 Consultation-[facility] TERESA MOLINA () [Signed: 20:29] [Entered: interfaces, interfaces (FV Interface) 20:29] CARDIOLOGY CONSULTATION REQUESTING PHYSICIAN: Oskar Mcgowan MD ([facility]) CHIEF COMPLAINT: Chest pain. HISTORY OF PRESENT ILLNESS: Latrice Covarrubias is a pleasant 53- year-old gentleman with a history of hypertension and hypertriglyceridemia who notes weakness and fatigue and listlessness for approximately 3 days. He believes he is under significant stress at work. He awoke on Saturday morning with substernal chest pain that was sharp and lasted for approximately 8 hours. He thinks it was worse with leaning or bending forward and was not particularly related to exertion. He was seen in the emergency room around 2:00 p.m. and was given two sprays of sublingual nitroglycerin and he thinks that this helped reduce the pain within approximately 5 minutes. However, with some recurrence he was given Maalox and viscous lidocaine and that eliminated the pain entirely. He has not had anymore episodes overnight. His initial electrocardiogram showed an old right bundle- branch block with normal sinus rhythm. One year ago he underwent a transesophageal echocardiogram (JORJE) which showed an ejection fraction of 60% with moderate left atrial enlargement, a patent foramen ovale (PFO) and a right ventricular systolic pressure (RVSP) of 25. Cardiolite stress test done in July of 2003 showed no ischemia. His double product was 32,000 and he did 9 minutes on the Kalyan protocol. His troponins were negative and the rest of his laboratory tests were essentially normal. PAST MEDICAL HISTORY: 1. Hypertriglyceridemia (diagnosed approximately one week ago). 2. Hypertension. 3. Rheumatoid arthritis. CURRENT MEDICATIONS: Tricor (which the patient just began one week ago). ALLERGIES: Penicillin. FAMILY HISTORY: Mother and father with coronary disease. SOCIAL HISTORY: No tobacco or alcohol use. REVIEW OF SYSTEMS: No headaches. No dysphagia or odynophagia. Substernal chest pain localized, worse with bending and leaning forward for one day. No orthopnea. No dyspnea on exertion . No paroxysmal nocturnal dyspnea (PND). No gastrointestinal or genitourinary symptoms. No arthralgias or myalgias. The rest of the review of systems was performed and was negative. PHYSICAL EXAMINATION: VITAL SIGNS: Blood pressure 156/64 on admission with a pulse of 77. NECK: Jugular venous pressure (JVP) is 9.0-cm. No carotid bruits. No thyromegaly or thyroid bruits. HEART: Cardiovascular exam shows rate and rhythm are regular, S1 and S2 are present. No murmurs. LUNGS: Clear bilaterally. ABDOMEN: Soft and nontender. Positive bowel sounds. EXTREMITIES: Extremities have 2+ pulses bilaterally. No clubbing, cyanosis or edema. LABORATORY DATA: Potassium 3.8, creatinine 1.16, hemoglobin 14.3. Troponin is negative. IMPRESSION: Chest pain, most likely noncardiac. Abdominal ultrasound shows multiple mobile gallstones although his liver tests are all normal. This could be consistent with symptomatic cholelithiasis. However, he has enough risk factors for coronary artery disease that I believe it is important that he undergo another stress test. Given his recent feelings of listlessness and tiredness I am not sure he is going to be able to do an adequate treadmill test and I would suggest an adenosine thallium stress test. RECOMMENDATIONS: I believe it is safe for him to go home with the following recommendations: 1. Start lisinopril at 10 mg a day for hypertension. 2. Start aspirin at 81 mg a day for cardioprotection. 3. The patient notes that he will return to the emergency room with any symptoms. 4. He will call [facility] on 11/13/2004, to arrange an adenosine thallium stress test. 5. He will arrange with his primary medical doctor for follow-up on his gallstones. I have already discussed the case with Dr. Serafin Santos. Martin MOLINA MD [place]: [facility] Document: [id number] CC: MD OSKAR PAREKH MD [place], [place] Name: WYATT LATRICE Jose CONSULTATION Page 3 of 2 LCN: AYAD DSC: 11/11/2004 [place], [place] Name: LATRICE COVARRUBIAS MR#: : Consult Date: 2024-01-24-30 1950 11/11/2004 Doctor: Martin MOLINA MD CONSULTATION Page 1 of 2 Electronically filed by Sonam Sarmiento 12/26/2004 10:03 AM NT ACCOUNT REPRESENTATIVE documented in this encounter Plan of Treatment Not on file documented as of this encounter Visit Diagnoses Diagnosis [facility] CARDIOLOGY CONSULTATION REPORT- Primary documented in this encounter Care Teams Imaging Technologist Relationship Specialty [place] [address] [facility] [place] [address] PCP - General Family Practice 07/29/12 Angela Morales MA Community Health Worker 01/19/2004/03 Isi Heredia, [facility] Lead Habitat Biologist 01/25/20 1 Matteo Del Angel MD [address] [place], [place] [address] Assigned Surgical Provider 02/26/21 Silvia Montiel MD [facility] [address] [facility] [address] [place] [address] Assigned Surgical Provider 11/03/22 documented as of this encounter
--- OUTSIDE RECORDS SUMMARY | 2023-03-19 00:08 | XMS_ITS | Clinical Summary ---
Author Name Unknown Organization [facility] Address [address] [place] [address] Care Team Providers Care Shell Sieve Operator Name Role Phone Unavailable Primary Care Provider Unavailabl e Source Comments Patient records contain information from all sites at [facility]. For routine questions regarding patient records, call [phone] during business hours, M-F 8:00 AM - 5:00 PM Central Time. Record requests for emergency care only can be directed to [phone] at any time.[facility] Allergies Active Allergy Reactions Criticality Noted Date [...] Date Recorded Dental: Regular Dentist Unknown 04/04/19 22 Sex and Gender Information Value Date Recorded Sex Assigned at Not on file Gender Identity Not on file Sexual Orientation Not on file Plan of Treatment Health Maintenance Due Date Last Done Comments CT Colonography 1950 Cologuard 1950 Colonoscopy 1950 Colorectal Cancer Surveillance 1950 Hepatitis C Screening 1950 Office Visit for Blood Press ure Check / Re-check 1950 Zoster Vaccines (1 of 2) 02/18/2014 12/24/2013, 10/19 DTaP,Tdap,and Td Vaccines (2 - Td or Tdap) 11/12/2021 11/13/2011 Potassium Level 07/22/2022 07/22/2021, 06/0 04/2021, 07/20/2021, Additional history exists Sodium Level 07/22/2022 07/22/2021, 06/0 04/2021, 07/20/2021, Additional history exists Depression Screening (Annual PHQ-2) 02/18/2023 Fall Risk Screen (Annual) 02/18/2023 Creatinine Level (Kidney Fun ction Test) 03/09/2023 03/09/2022, 07/22/2021, 07/21/2021, Additional history exists Fasting Glucose for Diabetes Screening 07/22/2024 07/22/2021, 07/21/2021, 07/20/2021, Additional history exists Lipid (Cholesterol) Screening 07/14/2026 07/14/2021, 01/02/2020 Pneumococcal vaccine (65+ years) Completed 12/02/19, 12/24/2019 Influenza Vaccine Completed 12/19/2022, , 11/24/2019, Additional history exists COVID-19 Vaccine Completed 01/16/2023, , 03/30/2020, Additional history exists
--- OUTSIDE RECORDS SUMMARY | 2023-03-19 00:08 | XMS_ITS | Encounter Summary ---
Author Name Unknown Organization [place] Address [address] [facility] [place] [address] Care Team Providers Care Structural Mill Supervisor Name Role Phone Vamshi Hewitt MD Primary Care Provider + [phone] Angela Morales MA Unavailable [phone] Isi Heredia [facility] Unavailable [phone] Matteo Del Angle MD Unavailable [phone] Silvia Montiel MD Unavailable [phone] Encounter Details Date Type Department Care Team (Late st Contact Info) Description 07/26/2003 Office Visit-[facility] [address] [place] [address] Unknown, MD Migel Social History [...] AGE: [age] years old Referring Physician: NORA VALENTINE Referring Clinic: [facility] CURRENT DIAGNOSES 1. - Hypertriglyceridemia, 272.4 2. Hypertension-Essential (Malignant), 401.0 3. - Abnormal EKG, 794.31 4. SOB, 786.05 ALLERGIES Penicillins, Hives MEDICATIONS 1. Lisinopril HCT 10/12.5 mg, 1 p.o. q.d. CHIEF COMPLAINTS High bp HISTORY OF PRESENT ILLNESS: Mr. Covarrubias is a 52-year-old male, self-referred because he wanted to discuss concerns regarding hypertension and his risk for heart disease. He was actually referred by another patient of [facility]. Mr. Covarrubias has had about six month history of fairly resistant hypertension where systolic blood pressures have ranged up to 180 and diastolic blood pressures have ranged from 100-120. He was put on lisinopril HCT a few weeks ago but within a couple days said that he noticed a rash and therefore stopped taking these drugs as of three days ago. The rash disappeared. Coincident with starting the lisinopril HCT was also the initiation of TriCor for hypertriglyceridemia, I am told the triglyceride levels are roughly 400. He said he is not aware that he is diabetic but does not know that he has been checked for it. He says his cholesterol levels are actually okay even though the high triglyceride levels may invalidate the LDL levels calculated. He is a nonsmoker, nondrinker. 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 He does not follow any kind of a diet and he realizes that diet and exercise may have some impact on his hypertensive tendencies as well as triglyceride problems but he is not very motivated to initiate life style changes because of what he perceives as a 7 day a week 12 hour day job. He denies any problems with exercise limitations other than mild dyspnea and fatigue with exertion.He does his own yard work. His major reason for not committing to exercise might be the time commitment. He denies any arrhythmic sensations or syncope. He has had no peripheral edema, orthopnea or cough. He has never had heart failure. His EKG from 1998 is normal but an EKG done today shows a new right bundle branch block with right axis deviation, etiology unknown and significance unknown. 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 RESPIRATORY dyspnea CARDIOVASCULAR negative for palpitations, chest pain, orthopnea, PND, peripheral edema, syncope or claudication. ABDOMINAL denies ulcer disease, hematochezia or melena. MUSCULOSKELETAL denies any history of arthritic symptoms or back problems. NEUROLOGICAL denies any history of recurrent strokes, headaches, TIA, or seizure disorder. PSYCHIATRIC depression ENDOCRINE hyperlipidemia HEMATOLOGICAL/IMMUNOLOGIC seasonal allergies PHYSICAL EXAMINATION VITAL SIGNS: Blood Pressure: 160/118 Sitting, Left arm, regular cuff 160/108 Retaken by Pulse- 88.00/min. Weight- 195.00 lbs. Height- 70.00 Temperature- .00 [...] time, person and place. MEDICATIONS UPDATED TODAY: Lisinopril HCT 10/12.5 mg, 1 p.o. q.d. Tricor 54 mg, Dose/instruction IMPRESSIONS/PLAN 1. Hypertension which he knows is unacceptable. I spent one hour talking to him about the necessityto bring blood pressures down below 135/80 ideally. He knows that he may require multiple pharmacologic agents to accomplish this. 2. Hypertriglyceridemia. I will ask Dr. Valentine to rule out diabetes.I have asked him not to take his TriCor for now because of his concerns regarding his rash. 3. Rashwhich is now gone. He use to get allergy injections. We had to separate whether this was TriCor, HCTZ, or lisinopril components that are causing this rash. 4. Abnormal EKG significance unknown. RECOMMENDATION: 1. I have asked him to stop taking the TriCor for the time being. 2. He will reinstitute lisinopril HCTZ at the dose Dr. Valentine gave him. I have asked him to purchase an Omron blood pressure monitor. If this dose of lisinopril HCTZ is effective, he will just continue this definitely. If his blood pressure is still too high, I will ask him to double the dose. If he develops a rash on HCTZ lisinopril, then we have to separate these two components out and I would actually use lisinopril at 20-40mg as a single agent. I have explained all of this to him. 3. We have talked about the importance of diet and life style corrections in order to optimize triglyceride problems and blood pressure management. Whether he can actually accomplish this or not in terms of his life style will be up to him. 4. Rule out diabetes per Dr. Valentine. 5. He will return for a resting echocardiogram to look at the structure of his heart given the new abnormalities of his ECG and he will return for a nuclear isotope stress test the same day. I have delayed the stress test for a couple of weeks giving him a chance to have his blood pressure come under better control first. TODAYS ORDERS 1. 2D, color flow, doppler 2 weeks 2. Treadmill Nuclear Study 2 weeks 3. F/U with Yara Flores, MSN, DRY GOODS INSPECTOR Dariel Coates M.D. <FONT COLOR=#[id number]><B><FONT FACE=System><FONT POINT=10> Document electronically signed by : Dariel Coates M.D. Date : 12/28/2003 Time : 3:55:54 PM documented in this encounter Plan of Treatment Not on file documented as of this encounter Visit Diagnoses Not on filedocumented in this encounter Care Teams Structural Mill Supervisor Relationship Specialty Start [place] [address] [place] [phone] PCP - General Family Practice 07/29/12 Angela Morales MA Community Health Worker 01/19/2004/03 Isi Heredia LSW Lead Arabic Teacher 01/25/20 1 Matteo Del Angel MD [address] [place] [address] Assigned Surgical Provider 02/26/21 Silvia Montiel MD [facility] [address] [facility] [address] [place], [place] [id number] Assigned Surgical Provider 11/03/22 documented as of this encounter
[2023-03-19] MEDS: 0.9 % SODIUM CHLORIDE 1000 ml 1,000 ML IV (00:10)
[2023-03-19 00:18] LABS: Lactate* 0.9 mmol/L (0.5-1.9)
[2023-03-19 00:19] LABS: Basophils Absolute Auto 0.02 K/uL (0.00-0.30); Basophils Percent Auto 0.3 % (0.0-3.0); Eosinophils Absolute Auto 0.18 K/uL (0.00-0.50); Eosinophils Percent Auto 2.3 % (0.0-7.0); Hematocrit 38.6 % (37.0-53.0); Hemoglobin* 13.8 gm/dL (13.5-17.5); Immature Granulocytes Abs Auto 0.07 K/uL (0.00-0.30); Immature Granulocytes Pct Auto 0.9 %; Lymphocytes Percent Auto 10.6 % (20-44); Mean Corpuscular HGB Conc 36 gm/dL (32-36); Mean Corpuscular Hemoglobin 32 pg (26-34); Mean Corpuscular Volume 88 fL (80-100); Monocytes Percent Auto 6.8 % (0.0-11.0); Neutrophils Percent Auto 79.1 % (42.0-72.0); Platelet Count* 163 K/uL (140-440); RDW Coefficient of Variation % 12.1 % (11.5-15.5); Red Blood Count 4.37 m/uL (4.30-5.90); White Blood Count* 7.81 K/uL (4.50-11.00)
[2023-03-19 00:29] LABS: Slide Review Reflex No
[2023-03-19 00:32] LABS: Chloride* 105 mmol/L (96-114); Potassium* 3.6 mmol/L (3.6-5.1); Sodium* 137 mmol/L (135-149)
[2023-03-19 00:35] LABS: Anion Gap 4 mEq/L (7-15); Blood Urea Nitrogen* 17 mg/dL (7-30); Carbon Dioxide* 28 mmol/L (20-32); Creatinine* 1.1 mg/dL (0.5-1.5); Est. Creatinine Clearance* 61.59; Estimated Glomerular Filt Rate 72 ml/min
[2023-03-19 00:36] LABS: Calcium* 9.1 mg/dL (8.4-10.6); Glucose* 119 mg/dL (60-115); Magnesium* 1.9 mg/dL (1.5-2.6)
[2023-03-19 00:37] LABS: Ethanol* < 0.01 % (0.01-0.03)
[2023-03-19 00:38] LABS: C Reactive Protein* 0.5 mg/dL (0.5-1.0)
[2023-03-19 00:48] LABS: Troponin I* 0.01 ng/mL (0.01-0.04)
[2023-03-19 00:52] LABS: NT Pro B Type NatriureticPept* 368 pg/mL
[2023-03-19 00:55] LABS: Appearance Urine Clear (Clear); Bilirubin Urine Negative (Negative); Blood Urine Negative (Negative); Color Urine Yellow (Yellow); Glucose Urine Negative (Negative); Ketones Urine Negative (Negative); Leukocyte Esterase Urine Negative (Negative); Nitrite Urine Negative (Negative); Protein Urine Negative (Negative); Urobilinogen Urine 0.2 (0.2-1.0); pH Urine 7.5 (5.0-8.5)
[2023-03-19 00:56] LABS: PCR FLU A Negative PCR FLU A (Negative); PCR FLU B Negative PCR FLU B (Negative); PCR RSV Negative PCR RSV (Negative); SARS PCR* Negative SARS-CoV-2 (Negative)
[2023-03-19] MEDS: TRAMADOL HCL 50 MG TABLET 100 MG PO (01:23)
[2023-03-19 01:24] LABS: RBC Urine 0-2 (0-2); Squamous Epithelial Cell Urine Few (None-Few); WBC Urine 0-2 (0-5)
[2023-03-19 01:46] VITALS: BP 179/104; BP 182/94; BP 200/107; PULSE 62; PULSE 63; PULSE 64
== END 2023-03-19 02:21 | disposition home or self-care (01) ==
PROVIDERS: Emergency Provider Family Medicine; PCP Family Medicine
DX: M54.50 Low back pain, unspecified (principal); R10.9 Unspecified abdominal pain
CPT/HCPCS: 36415; 80048; 81001; 82077; 83605; 83735; 83880; 84484; 85025; 86140; 87631; 93005; 96360; 99284; A9270; J7030